=== PATIENT | female | born 1945 | race Caucasian/White ===

== ENCOUNTER → 2021-07-31 09:29 | Outpatient (CLI) | payer MEDICARE, SELFPAY | PROVIDERS: Visit Provider Family Medicine | DX: Z01.818 Encounter for other preprocedural examination (principal); Z11.52 Encounter for screening for COVID-19 | CPT/HCPCS: C9803; U0003; U0005 ==

== ENCOUNTER → 2023-01-25 09:26 | Outpatient (POV) | payer MEDICARE, SELFPAY | PROVIDERS: Visit Provider Dermatology | DX: Z00.00 Encounter for general adult medical examination without abnormal findings (principal) ==

== ENCOUNTER 2023-08-19 06:28 | Outpatient (CLI) | payer MEDICARE, SELFPAY ==
--- NOTE | 2023-08-19 06:31 | CT_ITS ---
FINAL REPORT TECHNIQUE: Thin section axial CT images of the facial bones and sinuses were obtained without contrast. Coronal and sagittal reformatted images were also obtained. This study was performed with techniques to keep radiation doses as low as reasonably achievable, (ALARA). Individualized dose reduction techniques using automated exposure control or adjustment of mA and/or kV according to the patient's size were employed. CLINICAL HISTORY: mucocele of the left maxillary sinus COMPARISON: None FINDINGS: There is significant enlargement of the left maxillary sinus, with erosion of the floor of the left maxillary sinus. The transverse diameter of the left maxillary sinus measures 4.1 cm. There is a neutral maxillary sinus tooth along the medial wall. The left maxillary ostium is not identified. There is opacification of several ethmoid air cells. No fluid levels are identified. The nasal septum is in the midline. No fracture or acute bony abnormality is identified. 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 IMPRESSION: Significant enlargement of the left maxillary sinus as described, consistent with a large mucocele. There is opacification of several left ethmoid air cells. A torus palatinus is present. Reviewed, Interpreted and Dictated by Alton Rocha III, MD Transcribed by Jacque Brito Authenticated and [facility]
== END 2023-08-19 23:59 ==
PROVIDERS: PCP Family Medicine; Visit Provider Nurse Practitioner
DX: J32.0 Chronic maxillary sinusitis (principal); J34.1 Cyst and mucocele of nose and nasal sinus
CPT/HCPCS: 70486

== ENCOUNTER 2023-10-10 08:30 | Outpatient (CLI) | payer MEDICARE, SELFPAY ==
[2023-10-10 08:36] LABS: MANUAL DIFFERENTIAL MANUAL DIFFERENTIAL (MANUAL DIFF)
[2023-10-10 08:47] LABS: Basophils # 0.1 K/mm3 (0-0.2); Eosinophils # 0.2 K/mm3 (0.0-0.4); Hematocrit 40.6 % (37.0-47.0); Hemoglobin 13.4 g/dL (12.2-16.2); Lymphocytes # 1.6 K/mm3 (0.7-4.5); Lymphocytes % 25.5 % (10-50); Mean Corpuscular HGB Conc 32.9 g/dL (31.8-35.4); Mean Corpuscular Hemoglobin 30.2 pg (27.0-31.2); Mean Corpuscular Volume 91.9 fl (81-99); Mean Platelet Volume 7.2 fl (7.4-10.4); Monocytes # 0.4 K/mm3 (0.1-1.0); Monocytes % 6.3 % (1.7-9.3); Neutrophils # 4.1 K/mm3 (1.8-7.8); Neutrophils % 64.1 % (37.0-80.0); Platelet Count 311 K/mm3 (142-424); Red Blood Count 4.42 M/mm3 (4.20-5.40); Red Cell Distribution Width 13.4 % (11.5-17.5); White Blood Count 6.3 K/mm3 (4.8-10.8)
[2023-10-10 09:16] LABS: Eosinophils % 2 % (0-3); Lymphocytes % 28 % (10-50); Monocytes % 4 % (2-9); Neutrophils % 66 % (42-76); Total Cells Counted 100
[2023-10-10 09:17] LABS: Platelet Estimate Normal; RBC Morphology Normal
[2023-10-10 09:23] LABS: Alanine Aminotransferase 24 U/L (12-78); Albumin Level 3.9 g/dl (3.5-5.0); Albumin/Globulin Ratio 1.7 (1.1-1.8); Alkaline Phosphatase 72 U/L (38-126); Anion Gap 8.9 mEq/L (5-15); Aspartate Amino Transferase 32 U/L (14-36); Bilirubin,Total 0.5 mg/dl (0.2-1.3); Blood Urea Nitrogen 18 mg/dl (7-17); Calcium 9.5 mg/dl (8.4-10.2); Carbon Dioxide 29 mmol/L (22.0-30.0); Chloride 106 mmol/L (98-107); Estimated Glomerular Filt Rate 97 ml/min (>60); GFR (African American) 117 ML/MIN (>60); Globulin 2.3 g/dL (1.3-3.2); Glucose 101 mg/dl (74-100); Potassium 3.9 mmoL/L (3.5-5.1); Sodium 140 mmol/L (136-145); Total Protein,Serum 6.2 g/dl (6.3-8.2)
== END 2023-10-10 23:59 ==
LOC: LAB 08:31
PROVIDERS: PCP Family Medicine; Visit Provider Nurse Practitioner
DX: J34.1 Cyst and mucocele of nose and nasal sinus (principal); J32.0 Chronic maxillary sinusitis
CPT/HCPCS: 36415; 80053; 85007; 85014; 85018; 85048; 85049

== ENCOUNTER 2023-10-12 11:47 | Day surgery (SDC) | payer MEDICARE, SELFPAY ==
[2023-10-07 10:34] VITALS: BMI 20.7
[2023-10-12] VITALS (10 sets, daily range): BP systolic 132–141; BP diastolic 69–105; PULSE 84–93; RESP 16–19; TEMP 36.3–43; O2SAT 97–98
--- NOTE | 2023-10-12 12:10 | ECG_ITS ---
APPROVED REPORT Exam: Resting ECG HR:85 bpm ECG Measurements Heart Rate 85 AXES NJ 183 P 54 QRSd 79 QRS 8 QT 361 T 37 QTc 403 Conclusion SINUS RHYTHM NORMAL ECG UNCONFIRMED REPORT Electronically signed by : Todd Joseph MD 10/13/2023 19:23:41
[2023-10-12] MEDS: LACTATED RINGERS 1000ML 1,000 ML 100 ML IV (12:29)
[2023-10-12] MEDS: CEFAZOLIN SODIUM 1 GM in 0.9 % SODIUM CHLORIDE 50 ML IV (12:37)
[2023-10-12] MEDS: OXYMETAZOLINE NASAL SPRAY 0.05% 15ML NS (13:04)
[2023-10-12] MEDS: LIDOCAINE 1% W/EPI 1:100,000 20ML VIAL 20 ML (13:05)
[2023-10-12] MEDS: BACITRACIN ZINC OINT 30GM TUBE 28 GM TP (13:06)
--- NOTE | 2023-10-12 13:58 | EXP.OP.NOTE ---
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 She also had a tooth on the medial wall of her maxillary sinus that was causing no significant problems Operative note:: The patient was brought to the operating room and after adequate general anesthesia the nose was prepped and draped in the usual sterile fashion and 1% lidocaine with epinephrine was used to locally infiltrate the left middle meatus and the nasal mucosa decongested with topical Afrin. Using a 0 degree sinus endoscope the left middle meatus was visualized visualized in the middle turbinate medialized. Uncinectomy was then performed with a pediatric backbiter and microdebrider clearing the nasofrontal tract and infundibulum. The natural ostium of the maxillary sinus was then enlarged and cleared of obstructing mucosal disease. The wall of the mucocele was then incised using a sickle knife and then microdebrider was employed to enlarge the maxillary sinus ostium. Then a large amount of mucopurulent material and what looked like fungal material was suctioned and irrigated from the mucocele. This was done with saline irrigation and suction. Irrigation and suction was performed until the anterior of the mucocele was completely cleared. Appropriate culture and specimens were sent. Anterior ethmoidectomy was performed with a microdebrider and clearing disease polypoid mucosa in the anterior ethmoid while sparing all mucosa posteriorly. Nova pack was placed in the left middle meatus and the procedure concluded. All counts correct and blood loss was minimal Condition: stable Disposition: PACU Complications:: No complications
--- NOTE | 2023-10-12 14:03 | EXP.ANES.CKL ---
[facility] Disclaimer: The information contained in this section may have been updated after the patient was seen, as this information can be updated by other users. Medical History Breast cancer Chronic maxillary sinusitis Hyperthyroidism Leukemia Lung cancer Mucocele of maxillary sinus Non-Hodgkin lymphoma Opacification of left maxillary sinus Surgical History H/O lumpectomy H/O: hysterectomy Family History Father Cancer Mother Hypertension Social History Smoking Status: Never smoker alcohol intake: never substance use type: denies use current occupational status: retired Travel in the last 8 weeks: None adopted: No caregiver/support person: No foster care: No household members: spouse housing: house lives independently: Yes marital status: [facility] Anesthesia Checklist Patient Identification Patient Identification: Arm Band Structural Data Admitted From: Home Planned Operative Procedure/s: Endoscopic Sinus Surgery Consent for Planned Operative Procedure(s) Verified: Yes Verified Documents: Surgical Consent and History and Physical NPO Status Verified Time NPO: 00:00 Additional verifications Anesthesia Reactions: No Hx Blood Transfusions: No Blood Transfusion Reaction: No Airway Assessment Mallampati Score:: Class II C-Spine Mobility Assessed: Yes TMJ Mobility Assessed: Yes Dentition: Good Dentition Neurological Assessment Level of Consciousness: Awake and Alert Anesthesia Plan Anesthesia Risk discussed: Yes Anesthesia Plan: Verified ASA Class: II Anesthesia Type: General
--- NOTE | 2023-10-12 14:05 | P.PNANES_ITS ---
[facility] Anesthesia Record Part I Anesthesia Record I Intake, IV Amount: 700 Hydration: Adequate Estimated blood loss (mL): 5 Urine output (mL): 0 Blood Products used (#): none Blood Pressure: 136/105 SaO2: 97 Pulse Rate: 89 Airway Patency: Patent Respiratory Rate: 16 Temperature: 97.3 F Patient is:: Drowsy and Stable Stable to PACU at:: 14:00
--- NOTE | 2023-10-13 11:11 | EXP.ANES.II ---
[facility] Anesthesia Record Part II Anesthesia Record Part II Discharge Time: 14:30 Destination: Surgical Day Care (OP Surgery) PACU nurse assessment reviewed?: Yes Patient Condition:: Good Anesthesia Complications:: None Swallowing reflex intact?: Yes Airway Patency: Patent Cyanosis?: No Blood Pressure: 140/84 SaO2: 97 Respiratory Rate: 19 Pulse Rate: 89 Temperature: 97.3 F Mental Status: Alert & Oriented Pain level:: 0 Nausea and/or vomitting:: None Intake, IV Amount: 0 Hydration: Adequate
[2023-10-13 11:12] VITALS: BP 140/84; PULSE 89; RESP 19; TEMP 36.3; O2SAT 97
== END 2023-10-12 14:57 | disposition home or self-care (01) ==
PROVIDERS: PCP Family Medicine; Visit Provider Otolaryngology
PROC: (CPT 31254; principal; 2023-10-12 13:15)
DX: J32.2 Chronic ethmoidal sinusitis (principal)
CPT/HCPCS: 31254; 31267; 31299; 87070; 87075; 87102; 87205; 87206; 88305; 88311; 93005; 96374; J3490; J2405

== ENCOUNTER 2025-04-07 12:16 | Outpatient (CLI) | payer MEDICARE, SELFPAY ==
--- OUTSIDE RECORDS SUMMARY | 2024-01-26 05:15 | XMS_ITS ---
Author Organization [facility]-[place] Address [address] [place] [id number] Care Team Providers Care Business Affairs Manager Name Role Phone Tomasa Berrios Primary Care Provider Allergies No Known Allergies Results Component Value Reference Range Notes CBC Venipuncture (in house) Reviewed date:01/30/2024 10:24:08 AM Interpretation: Performing Lab: Notes/Report: wbc 6.6 3.5 - 10 lymph 22.8 15 - 50 mid 5.8 2 - 15 gran 71.4 35 - 80 rbc 4.61 3.5 - 5.5 hgb 13.6 11.5 - 16.5 hct 40.7 35 - 55 mcv 88.3 75 - 100 mch 29.5 25 - 35 mchc 33.4 31 - 38 platlet 304 100 - 400 P-Comprehensive Metabolic Pa srinivas (CMP) Reviewed date:01/31/2024 10:40:50 PM Interpretation:gluc 102 Performing Lab: Notes/Report: Test performed by [email or web address] , [address], [place] [address] Sanford Jaimes MD, Automotive Generator Repairer CLIA: [id number] Sodium 143 135-145 mmol/L Potassium 4.2 3.5-5.3 mmol/L Chloride 106 97-108 mmol/L CO2 27 22-32 mmol/L Glucose 102 65-99 mg/dL BUN 14 8-23 mg/dL Creatinine 0.56 0.50-1.00 mg/dL Calcium 9.3 8.6-10.4 mg/dL eGFR by Creatinine 93 >59 mL/min/1.73m2 Protein 6.2 6.0-8.3 g/dL Albumin 4.2 3.5-5.3 g/dL Alkaline Phosphatase 83 35-121 IU/L ALT (SGPT) 14 <5-47 IU/L AST (SGOT) 20 <5-40 IU/L Bilirubin, Total 0.4 <0.2-1.2 mg/dL A/G Ratio 2.1 1.1-2.5 mg/dL P-Lipid Panel Reviewed date:01/31/2024 10:40:50 PM Interpretation:chol 216, non-hdl 137 Performing Lab: Notes/Report: Test performed by [facility], [address] , [facility], [place] [address] Sanford Jaimes MD, Automotive Generator Repairer CLIA: [id number] Cholesterol 216 <200 mg/dL Triglycerides 59 <150 mg/dL HDL Cholesterol 79 >39 mg/dL Cholesterol / HDL Ratio 2.73 0.00-4.44 Ratio Non-HDL Cholesterol 137 <130 mg/dL LDL Cholesterol (Calculation) 125 <130 mg/dL LDL Cholesterol Levels* Less than 100 mg/dL Optimal 100 to 129 mg/dL Near Optimal/ Above Optimal 130 to 159 mg/dL Borderline High 160 to 189 mg/dL High 190 mg/dL and above Very High * Categories as recommended by the 2004 ATPIII guidelines LDL/HDL Ratio 1.6 <3.3 Ratio LDL Cholesterol Patient History Test Date: 07/20/2022 LDL Results: 129 Units: mg/dL % Change: - Test Date: 01/26/2024 LDL Results: 125 Units: mg/dL % Change: -3% P-TSH Reviewed date:01/31/2024 10:40:50 PM Interpretation:0.36 Performing Lab: Notes/Report: Test performed by [email or web address] [address] [facility] , [facility], [place] [address] Sanford Jaimes MD, Automotive Generator Repairer CLIA: [id number] TSH 0.36 0.43-5.25 mU/L REASON FOR VISIT 6 months, Needs labs Medications Medication SIG (Take, Route, Frequency, Duration) Notes Start Date End Date Status Levothyroxine Sodium 100 MCG Take 1 tablet by mouth once daily; Duration: 90 days Active Ibuprofen PM 200-38 MG 1 cap(s) orally o nce daily Active Biotin 1 MG as directed Orally Active traMADol HCl 50 MG 1-2 tab(s) orally every 6 hours prn Not-Taking Clobetasol Propionate 0.05 % 1 pamela applied topically 2 times a day 06/13/2018 Active Olean-3 1000 MG 1/2 tab orally once daily Active Aspirin Adult Low Dose 81 MG 1 tab(s) orally once a day Active Multivitamin - 1 tab(s) orally once a day Active Calcium 600 + Minerals 600-200 MG-UNIT 1 tab(s) orally 3 times a day Active Euthyrox 100 MCG 1 tab(s) orally once a day Active Social History Tobacco Use: Social History Observation Description Date Details (start date - stop date) Never Smoker NA - NA CURRENT TOBACCO USE: Question Answer Notes Are you a: never smoker Vital Signs Weight 112.8 lbs 01/26/2024 Blood pressure systolic 140 mm Hg 01/26/20 24 Blood pressure diastolic 80 mm Hg 024 Heart Rate 70 /min 01/26/2024 Height 61 in 01/26/2024 BMI 21.31 kg/m2 01/26/2024 Encounters Encounter Location Date Provider Diagnosis [facility] [address] [facility] [address] [facility] [address] [place] [id number] 01/26/2024 Tomasa [place]asfleet Acquired hypothyroid ism E03.9 ; Osteopenia of spine M85.88 ; Hx of breast cancer Z85.3 ; CLL (chronic lymphocytic leukemia) C91.10 ; Primary osteoarthritis of right hip M16.11 ; Large B-cell lymphoma C85.10 ; Malignant neoplasm of right upper lobe of lung C34.11 ; Dyshidrotic eczema L30.1 and Dyslipidemia E78.5 Assessments Encounter Date Diagnosis (ICD Code) Assessment Notes Treatment Notes Treatment Clinical Notes Section Notes 01/26/2024 Acquired hypothyroidism (ICD-10 - E03.9) 01/26/2024 Osteopenia of spine (ICD-10 - M85.88) 01/26/2024 Hx of breast cancer (ICD-10 - Z85.3) 01/26/2024 CLL (chronic lymphocytic leukemia) (ICD-10 - C91.10) Continue follow-up with oncology 01/26/2024 Primary osteoarthritis of right hip (ICD-10 - M16.11) 01/26/2024 Large B-cell lymphoma (ICD-10 - C85.10) 01/26/2024 Malignant neoplasm of right upper lobe of lung (ICD-10 - C34.11) 01/26/2024 Dyshidrotic eczema (ICD-10 - L30.1) 01/26/2024 Dyslipidemia (ICD-10 - E78.5) Plan Of Treatment Medication Medication Name Sig Start Date Stop Date Notes Euthyrox 100 MCG 1 tab(s) orally once a day Treatment Notes Assessment Notes CLL (chronic lymphocytic leukemia) Pete nue follow-up with oncology Next Appt Details Follow Up: 6 Months, Reason: Provider Name:Tomasa Haro, 08/06/2025 09:30:00 AM, [address] [facility], [address], [place], [id number], Progress Notes * CINTHYA GUEVARA:1945 ( 80 yo F)Acc No.[id number]:01/26/2024 Progress Notes Patient: ALBA JOSEPH Provider: Tomasa Berrios M.D. :1945 A ge:78 Y S ex:Female Date:01/26/2024 Address:[address] [place], [place] [address], [id number] Subjective: * Chief Complaints: * 1 . 6 months. 2. Needs labs . * HPI: E ndocrinology: Maintenance P t presents today for a 6 month check up. Pt is fasting today. Pt sts that she is doing well and has no new concerns or complaints at this time.? E NT/respiratory: She recently underwent endoscopic sinus surgery per Dr. Clay with removal of a mucocele from the left maxillary sinus. She is breathing much better. H ematology: She continues to follow with her 2 oncologist with no new changes. They have been ordering her mammogram and bone density testing. * ROS: D ERMATOLOGY: no R estefany. n o H jhonny. G ASTROENTEROLOGY: no N ausea. n o V omiting. n o D iarrhea.? U ROLOGY: no D ifficulty urinating. n o B lood in urine. * Medical History: H ypothyroid, Breast Cancer - diagnosed 01/2017, Uterine Fibroids, CLL Dx in July 2016 - follows with oncology, Osteopenia, COLOGUARD - Negative - 01/2018, BMD - normal - 09/2018, Mammogram - normal - 09/2018, Has had Prevnar and Pneumovax in past, Mammograms ordered by oncologist, Large B cell lymphoma- diagnosed 10/2020, Primary lung cancer - diagnosed 08/2021 - S/P radiation therapy/ [facility], Bone density testing per oncology. * Surgical History: H ysterectomy Jul 2001, Partial Mastectomy/left breast January 2017, cataract surgery, both eyes , Colonoscopy ~2011, Sinus Surgery 10/12/2023. * Family History: F ather: 83 yrs, primary brain cancer. M other: 89 yrs, dementia, diagnosed with Hypertension. S iblings: diagnosed with Diabetes, Hypertension. 1 sister(s) . 1 son(s) . . pt has a sister at the age of 60, CHF, heavy smoker and drinker. * Social History: C URRENT TOBACCO USE: No A re you a: n ever smoker. C affeine: yes, Coffee and Soft Drinks 2 cups per day. Home smoke detector use: yes. Alcohol: beer, wine, mixed drinks, 4-5 per week. * Medications: T aking Biotin 1 MG Capsule as directed Orally , Taking Euthyrox 100 MCG Tablet 1 tab(s) orally once a day , Taking Clobetasol Propionate 0.05 % Cream 1 pamela applied topically 2 times a day , Taking Calcium 600 + Minerals 600-200 MG-UNIT Tablet 1 tab(s) orally 3 times a day , Taking Multivitamin - Tablet 1 tab(s) orally once a day , Taking Aspirin Adult Low Dose 81 MG Tablet Delayed Release 1 tab(s) orally once a day , Taking Olean-3 1000 MG Capsule 1/2 tab orally once daily , Taking Ibuprofen PM 200-38 MG Tablet 1 cap(s) orally once daily , Taking Levothyroxine Sodium 100 MCG Tablet Take 1 tablet by mouth once daily , Not-Taking traMADol HCl 50 MG Tablet 1-2 tab(s) orally every 6 hours prn , Medication List reviewed and reconciled with the patient * Allergies: N .K.D.A. Objective: * Vitals: W t:112.8, Temp:98.0, BP:140/80, HR:70, Nurse:KELTON, Ht: 61, BMI:21.31. * Examination: G eneral Examination: General Appearance: N AD, weight stable. H EENT: sclera and conjunctiva clear, PERRLA, TM's normal, translucent. Mild nasal congestion. Sinuses are nontender. N mlii: s upple, no lymphadenopathy, no carotid bruits, no thyromegaly. H eart: R SR. L ungs: c lear to auscultation. E xtremities: no leg edema. Assessment: * Assessment: 1. A cquired hypothyroidism - E03.9 (Primary) 2 . O steopenia of spine - M85.88 3 . H x of breast cancer - Z85.3 4 . C LL (chronic lymphocytic leukemia) - C91.10 5 . P rimary osteoarthritis of right hip - M16.11 6. L arge B-cell lymphoma - C85.10 7 . M alignant neoplasm of right upper lobe of lung - C34.11 8 . D yshidrotic eczema - L30.1 ?9. D yslipidemia - E78.5 Plan: * Treatment: Value Reference Range A /G Ratio 2.1 1.1-2.5 - mg/dL * A lbumin 4.2 3.5-5.3 - g/dL * A lkaline Phosphatase 83 35-121 - IU/L * A LT (SGPT) 14 <5-47 - IU/L * A ST (SGOT) 20 <5-40 - IU/L * B ilirubin, Total 0.4 <0.2-1.2 - mg/dL * B UN 14 8-23 - mg/dL * C alcium 9.3 8.6-10.4 - mg/dL * C hloride 106 97-108 - mmol/L * C O2 27 22-32 - mmol/L * C reatinine 0.56 0.50-1.00 - mg/dL * G lucose 102 H 65-99 - mg/dL * P otassium 4.2 3.5-5.3 - mmol/L * S odium 143 135-145 - mmol/L * P rotein 6.2 6.0-8.3 - g/dL * e GFR by Creatinine 93 >59 - mL/min/1.73m2 * Tomasa Berrios 01/31/2024 1 0:40:27 PM > labs reviewed are satisfactory ?LAB: P-TSH (Collection Date & Time - 01/26/2024 08:20 AM)?0.36* Value Reference Range T SH 0.36 L 0.43-5.25 - mU/L * Tomasa Berrios 01/31/2024 1 0:40:27 PM > labs reviewed are satisfactory 2.?CLL (chronic lymphocytic leukemia)? Notes: Continue follow-up with oncology??3.?Large B-cell lymphoma?LAB: P-Comprehensive Metabolic Panel (CMP) (Collection Date & Time - 01/26/2024 08:20 AM)?gluc 102* Value Reference Range A /G Ratio 2.1 1.1-2.5 - mg/dL * A lbumin 4.2 3.5-5.3 - g/dL * A lkaline Phosphatase 83 35-121 - IU/L * A LT (SGPT) 14 <5-47 - IU/L * A ST (SGOT) 20 <5-40 - IU/L * B ilirubin, Total 0.4 <0.2-1.2 - mg/dL * B UN 14 8-23 - mg/dL * C alcium 9.3 8.6-10.4 - mg/dL * C hloride 106 97-108 - mmol/L * C O2 27 22-32 - mmol/L * C reatinine 0.56 0.50-1.00 - mg/dL * G lucose 102 H 65-99 - mg/dL * P otassium 4.2 3.5-5.3 - mmol/L * S odium 143 135-145 - mmol/L * P rotein 6.2 6.0-8.3 - g/dL * e GFR by Creatinine 93 >59 - mL/min/1.73m2 * Tomasa Berrios 01/31/2024 1 0:40:27 PM > labs reviewed are satisfactory ?LAB: CBC Venipuncture (in house) (Collection Date & Time - 01/26/2024)* Value Reference Range w bc 6.6 3.5 - 10 * l ymph 22.8 15 - 50 * m id 5.8 2 - 15 * g ran 71.4 35 - 80 * r bc 4.61 3.5 - 5.5 * h gb 13.6 11.5 - 16.5 * h ct 40.7 35 - 55 * m cv 88.3 75 - 100 * m ch 29.5 25 - 35 * m chc 33.4 31 - 38 * p latlet 304 100 - 400 * Lelo Ku 01/26/2024 9:37 :32 AM > 4.?Dyslipidemia?LAB: P-Lipid Panel (Collection Date & Time - 01/26/2024 08:20 AM)?chol 216, non-hdl 137* Value Reference Range C holesterol / HDL Ratio 2.73 0.00-4.44 - Ratio * C holesterol 216 H <200 - mg/dL * H DL Cholesterol 79 >39 - mg/dL * L DL Cholesterol (Calculation) 125 <130 - mg/d L * L DL/HDL Ratio 1.6 <3.3 - Ratio * N on-HDL Cholesterol 137 H <130 - mg/dL * T riglycerides 59 <150 - mg/dL * Tomasa Berrios 01/31/2024 1 0:40:27 PM > labs reviewed are satisfactory * Procedure Codes: 8 5025 CBC WITH AUTO DIFF, 51839 VENIPUNCT, ROUTINE* * Follow Up: 6 Months * Images: Billing Information: * Visit Code: 69406 Office Visit, Est Pt., Level 3. * Procedure Codes: 20686 CBC WITH AUTO DIFF. 60217 VENIPUNCT, ROUTINE*. * Electronic signature of Tomasa Berrios MD on 04/08/2025 at 12:18 PM EDT Sign off status: Pending * Provider: Tomasa Berrios M.D. Date: 0 01/26/2024 Generated for Norahi negin/Abbie/eTransmitting on: 1 12:18 PM EDT History and Physical Notes * HPI (History of Present Illness) Category Sub-Category Detail Notes Category Not es [facility]. Pt is fasting today. Pt sts that she is doing well and has no new concerns or complaints at this time Examination Category Sub-Category Detail Notes Category Not es General Examination HEENT: sclera and c onjunctiva clear, PERRLA, TM's normal, translucent. Mild nasal congestion. Sinuses are nontender Heart: RSR Lungs: clear to auscultatio n Extremities: no leg edema General Appearance: NAD, weight stable Neck: supple, no lymphaden opathy, no carotid bruits, no thyromegaly
--- OUTSIDE RECORDS SUMMARY | 2024-07-26 04:45 | XMS_ITS ---
Author Organization [facility] Address [address] [place] [id number] Care Team Providers Care Research Program Assistant Name Role Phone Agustina Tomasa Mao Primary Care Provider [phone] Allergies No Known Allergies Results Component Value Reference Range Notes P-Comprehensive Metabolic Pa srinivas (CMP) Reviewed date:07/30/2024 10:39:37 AM Interpretation:K+ 5.4, gluc 101 Performing Lab: Notes/Report: CLIA: [id number] Sanford Jaimes MD, [employer] [address] [facility] , [address], [place] [address] Test performed by [facility], [facility] Sodium 144 135-145 mmol/L Potassium 5.4 3.5-5.3 mmol/L Chloride 107 97-108 mmol/L CO2 26 22-32 mmol/L Glucose 101 65-99 mg/dL BUN 15 8-23 mg/dL Creatinine 0.65 0.50-1.00 mg/dL Calcium 9.9 8.6-10.4 mg/dL eGFR by Creatinine 89 >59 mL/min/1.73m2 Protein 6.9 6.0-8.3 g/dL Albumin 4.5 3.5-5.3 g/dL Alkaline Phosphatase 76 35-121 IU/L ALT (SGPT) 16 <5-47 IU/L AST (SGOT) 23 <5-40 IU/L Bilirubin, Total 0.5 <0.2-1.2 mg/dL A/G Ratio 1.9 1.1-2.5 P-Lipid Panel Reviewed date:07/30/2024 10:39:37 AM Interpretation:chol 236, non-hdl 149, ldl 135 Performing Lab: Notes/Report: Test performed by [facility], [address], [place] [address] Sanford Jaimes MD, [employer] CLIA: [id number] Cholesterol 236 <200 mg/dL Triglycerides 68 <150 mg/dL HDL Cholesterol 87 >39 mg/dL Cholesterol / HDL Ratio 2.71 0.00-4.44 Ratio Non-HDL Cholesterol 149 <130 mg/dL LDL Cholesterol (Calculation) 135 <130 mg/dL LDL Cholesterol Levels* Less than [...] Results: 125 Units: mg/dL % Change: -3% Test Date: 07/26/2024 LDL Results: 135 Units: mg/dL % Change: +8% P-TSH Reviewed date:07/30/2024 10:39:37 AM Interpretation:Normal Performing Lab: Notes/Report: Test performed by [facility] [address] [place] [address] , [address], [place] [address] Sanford Jaimes MD, [employer] CLIA: [id number] TSH 1.45 0.43-5.25 mU/L REASON FOR VISIT 6 month check Medications Medication SIG (Take, Route, Frequency, Duration) Notes Start Date End Date Status Calcium 600 + Minerals 600-200 MG-UNIT 1 tab(s) orally 3 times a day Active Euthyrox 100 MCG 1 tab(s) orally once a day Active Multivitamin - 1 tab(s) orally once a day Active Aspirin Adult Low Dose 81 MG 1 tab(s) orally once a day Active Clobetasol Propionate 0.05 % 1 pamela applied topically 2 times a day 06/13/2018 Active Bellflower-3 1000 MG 1/2 tab orally once daily Active Ibuprofen PM 200-38 MG 1 cap(s) orally o nce daily Active Biotin 1 MG as directed Orally Active Social History Tobacco Use: Social History Observation Description Date Details (start date - stop date) Never Smoker NA - NA CURRENT TOBACCO USE: Question Answer Notes Are you a: never smoker Vital Signs Weight 111.6 lbs 07/26/2024 Blood pressure systolic 118 mm Hg 07/26/19 25 Blood pressure diastolic 68 mm Hg 025 Heart Rate 77 /min 07/26/2024 Height 61 in 07/26/2024 BMI 21.08 kg/m2 07/26/2024 Encounters Encounter Location Date Provider Diagnosis [facility] [address] 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, [address], [place], [id number], Progress Notes * ALBA GUEVARADOB:1945 ( 80 yo F)Acc No.[id number]:07/26/2024 Progress Notes Patient: ALBA JOESPH Provider: Tomasa Berrios M.D. :1945 A ge:79 Y S ex:Female Date:07/26/2024 Address:[address] [place] [address] HIRAM SMITH, [id number] Subjective: * Chief Complaints: * 1 . 6 month check. * HPI: H PI: 79 year old female presents with c/o Patient is here today for?Pt is here for her 6 month check up. Pt sts she is doing well and has no concerns or complaints at this time. Pt is fasting. H ematology: She continues to follow with her 2 oncologists with no changes. They have been ordering her mammogram [...] diagnosed with Hypertension. S iblings: diagnosed with Hypertension, Diabetes. 1 sister(s) . 1 son(s) . . [...] 4-5 per week. * Medications: T aking Euthyrox 100 MCG Tablet 1 tab(s) orally once a day , Taking Biotin 1 MG Capsule as directed Orally , Taking Clobetasol Propionate 0.05 % Cream 1 pamela applied topically 2 times a day , Taking Calcium 600 + Minerals 600-200 MG-UNIT Tablet 1 tab(s) orally 3 times a day , Taking Multivitamin - Tablet 1 tab(s) orally once a day , Taking Aspirin Adult Low Dose 81 MG Tablet Delayed Release 1 tab(s) orally once a day , Taking Bellflower-3 1000 MG Capsule 1/2 tab orally once daily , Taking Ibuprofen PM 200-38 MG Tablet 1 cap(s) orally once daily , Medication List reviewed and reconciled with the patient * Allergies: N .K.D.A. Objective: * Vitals: W t:111.6, Temp:98.3, BP:118/68, HR:77, Nurse:ALEXIS, Ht: 61, BMI:21.08. * Examination: G eneral Examination: General Appearance: N AD, weight stable. H EENT: sclera and conjunctiva clear, PERRLA, TM's normal, translucent. Mild nasal congestion. Sinuses are nontender. N mili: s upple, no lymphadenopathy, no carotid bruits, [...] E78.5 Plan: * Treatment: Value Reference Range T SH 1.45 0.43-5.25 - mU/L * Tomasa Berrios 07/30/2024 1 0:39:28 AM >See phone encounter 2.?CLL (chronic lymphocytic leukemia)?LAB: P-Comprehensive Metabolic Panel (CMP) (Collection Date & Time - 07/26/2024 09:02 AM)?K+ 5.4, gluc 101* Value Reference Range A /G Ratio 1.9 1.1-2.5 - * A lbumin 4.5 3.5-5.3 - g/dL * A lkaline Phosphatase 76 35-121 - IU/L * A LT (SGPT) 16 <5-47 - IU/L * A ST (SGOT) 23 <5-40 - IU/L * B ilirubin, Total 0.5 <0.2-1.2 - mg/dL * B UN 15 8-23 - mg/dL * C alcium 9.9 8.6-10.4 - mg/dL * C hloride 107 97-108 - mmol/L * C O2 26 22-32 - mmol/L * C reatinine 0.65 0.50-1.00 - mg/dL * G lucose 101 H 65-99 - mg/dL * P otassium 5.4 H 3.5-5.3 - mmol/L * S odium 144 135-145 - mmol/L * P rotein 6.9 6.0-8.3 - g/dL * e GFR by Creatinine 89 >59 - mL/min/1.73m2 * Tomasa Berrios 07/30/2024 1 0:39:28 AM >See phone encounter Notes: Continue follow-up with oncology??3.?Dyslipidemia?LAB: P-Comprehensive Metabolic Panel (CMP) (Collection Date & Time - 07/26/2024 09:02 AM)?K+ 5.4, gluc 101* Value Reference Range A /G Ratio 1.9 1.1-2.5 - * A lbumin 4.5 3.5-5.3 - g/dL * A lkaline Phosphatase 76 35-121 - IU/L * A LT (SGPT) 16 <5-47 - IU/L * A ST (SGOT) 23 <5-40 - IU/L * B ilirubin, Total 0.5 <0.2-1.2 - mg/dL * B UN 15 8-23 - mg/dL * C alcium 9.9 8.6-10.4 - mg/dL * C hloride 107 97-108 - mmol/L * C O2 26 22-32 - mmol/L * C reatinine 0.65 0.50-1.00 - mg/dL * G lucose 101 H 65-99 - mg/dL * P otassium 5.4 H 3.5-5.3 - mmol/L * S odium 144 135-145 - mmol/L * P rotein 6.9 6.0-8.3 - g/dL * e GFR by Creatinine 89 >59 - mL/min/1.73m2 * Tomasa Berrios 07/30/2024 1 0:39:28 AM >See phone encounter ?LAB: P-Lipid Panel (Collection Date & Time - 07/26/2024 09:02 AM)?chol 236, non-hdl 149, ldl 135* Value Reference Range C holesterol / HDL Ratio 2.71 0.00-4.44 - Ratio * C holesterol 236 H <200 - mg/dL * H DL Cholesterol 87 >39 - mg/dL * L DL Cholesterol (Calculation) 135 H <130 - mg/d L * L DL/HDL Ratio 1.6 <3.3 - Ratio * N on-HDL Cholesterol 149 H <130 - mg/dL * T riglycerides 68 <150 - mg/dL * Tomasa Berrios 07/30/2024 1 0:39:28 AM >See phone encounter * Procedure Codes: G 2211 Complex e/m visit add on * Follow Up: 6 Months * Images: Billing Information: * Visit Code: 38973 Office Visit, Est Pt., Level 3. * Procedure Codes: G2211 Complex e/m visit add on. * Electronic signature of Tomasa Berrios MD on 04/08/2025 at 12:19 PM EDT Sign off status: Pending * Provider: Tomasa Berrios M.D. Date: 0 07/26/2024 Generated for Gabino kam/Abbie/Dixon on: 1 12:19 PM EDT History and Physical Notes * HPI (History of Present Illness) Category Sub-Category Detail Notes Category Not es HPI Patient is here today for Pt is here for her 6 month check up. Pt sts she is doing well and has no concerns or complaints at this time. Pt is fasting Examination Category Sub-Category Detail Notes Category Not es General Examination HEENT: sclera and c onjunctiva clear, PERRLA, TM's normal, translucent. Mild nasal congestion. Sinuses are nontender Heart: RSR Lungs: clear to auscultatio n Extremities: no leg edema General Appearance: NAD, weight stable Neck: supple, no lymphaden opathy, no carotid bruits, no thyromegaly
--- OUTSIDE RECORDS SUMMARY | 2025-01-31 05:50 | XMS_ITS ---
Author Organization [facility] Address [address] [facility] [address] [place] [id number] Care Team Providers Care Power Marketer Name Role Phone Tomasa Berrios Primary Care Provider [phone] Allergies No Known Allergies Results Component Value Reference Range Notes CBC Venipuncture (in house) Reviewed date:02/03/2025 04:18:39 PM Interpretation:Normal Performing Lab: Notes/Report: Normal wbc 6.3 3.5 - 10 lymph 25.8 15 - 50 mid 5.9 2 - 15 gran 68.3 35 - 80 rbc 4.88 3.5 - 5.5 hgb 14.1 11.5 - 16.5 hct 42.8 35 - 55 mcv 87.6 75 - 100 mch 28.9 25 - 35 mchc 33.0 31 - 38 platlet 266 100 - 400 Cologuard Reviewed date:03/25/2025 06:54:00 PM Interpretation:negative Performing Lab: Notes/Report: negative P-Comprehensive Metabolic Pa srinivas (CMP) Reviewed date:02/03/2025 04:18:39 PM Interpretation:Normal Performing Lab: Notes/Report: CLIA: [id number] Sanford Jaimes MD, Hospital Insurance Clerk [address] [place] [address] , [address], [place] [address] Test performed by [facility], [facility] Sodium 143 135-145 mmol/L Potassium 4.2 3.5-5.3 mmol/L Chloride 105 97-108 mmol/L CO2 25 20-32 mmol/L Glucose 92 65-99 mg/dL BUN 18 8-23 mg/dL Creatinine 0.61 0.50-1.00 mg/dL Calcium 9.7 8.6-10.4 mg/dL eGFR by Creatinine 90 >59 mL/min/1.73m2 Protein 6.5 6.0-8.3 g/dL Albumin 4.5 3.5-5.3 g/dL Alkaline Phosphatase 69 35-121 IU/L ALT (SGPT) 17 <5-47 IU/L AST (SGOT) 23 <5-40 IU/L Bilirubin, Total 0.6 <0.2-1.2 mg/dL A/G Ratio 2.3 1.1-2.5 P-Lipid Panel Reviewed date:02/03/2025 04:18:39 PM Interpretation:chol 230, non-hdl 160, ldl 138 Performing Lab: Notes/Report: Test performed by [facility], [address] , [address], [place] [address] Sanford Jaimes MD, Hospital Insurance Clerk CLIA: [id number] Cholesterol 230 <200 mg/dL Triglycerides 110 <150 mg/dL HDL Cholesterol 70 >39 mg/dL Cholesterol / HDL Ratio 3.29 0.00-4.44 Ratio Non-HDL Cholesterol 160 <130 mg/dL LDL Cholesterol (Calculation) 138 <130 mg/dL LDL Cholesterol Levels* Less than 100 mg/dL Optimal 100 to 129 mg/dL Near Optimal/ Above Optimal 130 to 159 mg/dL Borderline High 160 to 189 mg/dL High 190 mg/dL and above Very High * Categories as recommended by the 2004 ATPIII guidelines LDL/HDL Ratio 2.0 <3.3 Ratio LDL Cholesterol Patient History Test Date: 01/26/2024 LDL Results: 125 Units: mg/dL % Change: -3% Test Date: 07/26/2024 LDL Results: 135 Units: mg/dL % Change: +8% Test Date: 01/31/2025 LDL Results: 138 Units: mg/dL % Change: +2% P-TSH Reviewed date:02/03/2025 04:18:39 PM Interpretation:0.21 Performing Lab: Notes/Report: Test performed by [facility] [address] [place] [address] , [facility], [place] [address] Sanford Jaimes MD, Hospital Insurance Clerk CLIA: [id number] TSH 0.21 0.43-5.25 mU/L REASON FOR VISIT 6 month check and Annual Wellness Visit Medications Medication SIG (Take, Route, Frequency, Duration) Notes Start Date End Date Status Ibuprofen PM 200-38 MG 1 cap(s) orally o nce daily Active Levothyroxine Sodium 100 MCG Take 1 tabl et by mouth once daily; Duration: 90 Active Aspirin Adult Low Dose 81 MG 1 tab(s) or ally once a day Active Dix-3 1000 MG 1/2 tab orally once daily Active Multivitamin - 1 tab(s) orally once a day Active Biotin 1 MG as directed Orally Active Clobetasol Propionate 0.05 % 1 pamela appli ed topically 2 times a day 06/13/2018 Active Euthyrox 100 MCG 1 tab(s) orally once a day Active Calcium 600 + Minerals 600-200 MG-UNIT 1 tab(s) orally 3 times a day Active Immunizations Vaccine Route Administration Date Status Comme nts PNEUMOVAX 23 VACCINE IM Intramuscular 01/31/2025 Administe red Social History Tobacco Use: Social History Observation Description Date Details (start date - stop date) Never Smoker NA - NA CURRENT TOBACCO USE: Question Answer Notes Are you a: never smoker Vital Signs Weight 106.8 lbs 01/31/2025 Blood pressure systolic 116 mm Hg 02/01/20 25 Blood pressure diastolic 60 mm Hg 025 Heart Rate 56 /min 01/31/2025 Height 61 in 01/31/2025 BMI 20.18 kg/m2 01/31/2025 Encounters Encounter Location Date Provider Diagnosis [facility] [address] [facility] [address] [place] [id number] 01/31/2025 Tomasa Berrios Adult general medica l examination Z00.00 ; Acquired hypothyroidism E03.9 ; Dyslipidemia E78.5 ; Osteopenia of spine M85.88 ; Hx of breast cancer Z85.3 ; CLL (chronic lymphocytic leukemia) C91.10 ; Primary osteoarthritis of right hip M16.11 ; Large B-cell lymphoma C85.10 ; Malignant neoplasm of right upper lobe of lung C34.11 ; Dyshidrotic eczema L30.1 and BMI 20.0-20.9, adult Z68.20 Assessments Encounter Date Diagnosis (ICD Code) Assessment Notes Treatment Notes Treatment Clinical Notes Section Notes 01/31/2025 Adult general medical examination (ICD-10 - Z00.00) Patient instructed to return to office Annually for Annual Wellness Visits to include annual screenings of Pain assessment, Functional Ability assessment, Cognitive Ability assessment, Fall Risk assessment, Depression screening and Bladder control screening. 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) 01/31/2025 Malignant neoplasm of right upper lobe of lung (ICD-10 - C34.11) 01/31/2025 Dyshidrotic eczema (ICD-10 - L30.1) 01/31/2025 BMI 20.0-20.9, adult (ICD-10 - Z68.20) Plan Of Treatment Medication Medication Name Sig Start Date Stop Date Notes Euthyrox 100 MCG 1 tab(s) orally once a day Treatment Notes Assessment Notes Adult general medical examination Patien t instructed to return to office Annually for Annual Wellness Visits to include annual screenings of Pain assessment, Functional Ability assessment, Cognitive Ability assessment, Fall Risk assessment, Depression screening and Bladder control screening. CLL (chronic lymphocytic leukemia) Pete nue follow-up with oncology Next Appt Details Follow Up: 6 Months, Reason: Provider Name:Tomasa Haro, 08/06/2025 09:30:00 AM, [address] [facility], [address], [place], [place], [phone], Progress Notes * PAOLA ALBADOB:1945 ( 80 yo F)Acc No.[id number]:01/31/2025 Annual Wellness Visit Patient: ALBA JOSEPH Provider: Tomasa Berrios M.D. :1945 A ge:79 Y S ex:Female Date:01/31/2025 Address:[address] [place], [place] [address]H[place]AM [place]HEMIDWAYNE [id number] Subjective: * Chief Complaints: * 1 . 6 month check and Annual Wellness Visit. * HPI: H PI: Patient is here today for a scheduled 6 month check up and?a Medicare Annual Wellness Visit. Pt sts she is doing well and has no concerns at this time. Pt sts she is fasting. * ROS: O PTHALMOLOGY: Negative for d enies vision issues. * Medical History: H ypothyroid, Breast Cancer [...] day , Taking Calcium 600 + Minerals 600- 200 MG-UNIT Tablet 1 tab(s) orally 3 times a day , Taking Multivitamin - Tablet 1 tab(s) orally once a day , Taking Aspirin Adult Low Dose 81 MG Tablet Delayed Release 1 tab(s) orally once a day , Taking Dix-3 1000 MG Capsule 1/2 tab orally once daily , Taking Ibuprofen PM 200-38 MG Tablet 1 cap(s) orally once daily , Taking Levothyroxine Sodium 100 MCG Tablet Take 1 tablet by mouth once daily * Allergies: N .K.D.A. Objective: * Vitals: W t: 106.8, Temp: 98.6, BP: 116/60, HR: 56, O2 Sat: 95% on RA, Nurse: anahi, Ht: 61, BMI:20.18. * Physical Examination: G ENERAL: Pain Assessment: P ain level: 0, on a scale of 0-10 (with 10 being extreme pain). F unctional Status Assessment: P atient response to question of how often physical health interferes with daily activities: Almost never. Able to perform ADLs-including meal preparation, grocery shopping, housework, laundry, taking medications or handling finances. Cognitive Status: alert and oriented. Ambulation Status: Fully ambulatory. F all Risk Assessment: I ndependant in ambulation, adequate lighting in home. Patient has NOT fallen or had trouble walking within the past 12 months. D epression Screening: D enies depressed mood or anxiety. Describes emotional health as: calm. B ladder Control Screening: s mall problems.? Assessment: * Assessment: 1. A dult general medical examination - Z00.00 (Primary) 2 . A cquired hypothyroidism - E03.9 3 . D yslipidemia - E78.5 4 . O steopenia of spine - M85.88 5 . H x of breast cancer - Z85.3 6 . C LL (chronic lymphocytic leukemia) - C91.10 7 . P rimary osteoarthritis of right hip - M16.11 8 . L arge B-cell lymphoma - C85.10 9 . M alignant neoplasm of right upper lobe of lung - C34.11 1 0. D yshidrotic eczema - L30.1 11. B WV 20.0-20.9, adult - Z68.20 Plan: * Treatment: Notes:Patient instructed to return to office Annually for Annual Wellness Visits to include annual screenings of Pain assessment, Functional Ability assessment, Cognitive Ability assessment, Fall Risk assessment, Depression screening and Bladder control screening.??2.?Acquired hypothyroidism? Continue Euthyrox Tablet, 100 MCG, 1 tab(s), orally, once a day.?LAB: P-TSH (Collection Date & Time - 01/31/2025 09:44 AM)?0.21* Value Reference Range T SH 0.21 L 0.43-5.25 - mU/L * Tomasa Berrios 02/03/2025 0 4:18:30 PM EDT > See phone encounter 3.?Dyslipidemia?LAB: P-Comprehensive Metabolic Panel (CMP) (Collection Date & Time - 01/31/2025 09:44 AM)?Normal* Value Reference Range A /G Ratio 2.3 1.1-2.5 - * A lbumin 4.5 3.5-5.3 - g/dL * A lkaline Phosphatase 69 35-121 - IU/L * A LT (SGPT) 17 <5-47 - IU/L * A ST (SGOT) 23 <5-40 - IU/L * B ilirubin, Total 0.6 <0.2-1.2 - mg/dL * B UN 18 8-23 - mg/dL * C alcium 9.7 8.6-10.4 - mg/dL * C hloride 105 97-108 - mmol/L * C O2 25 20-32 - mmol/L * C reatinine 0.61 0.50-1.00 - mg/dL * G lucose 92 65-99 - mg/dL * P otassium 4.2 3.5-5.3 - mmol/L * S odium 143 135-145 - mmol/L * P rotein 6.5 6.0-8.3 - g/dL * e GFR by Creatinine 90 >59 - mL/min/1.73m2 * Tomasa Berrios 02/03/2025 0 4:18:30 PM EDT > See phone encounter ?LAB: P-Lipid Panel (Collection Date & Time - 01/31/2025 09:44 AM)?chol 230, non-hdl 160, ldl 138* Value Reference Range C holesterol / HDL Ratio 3.29 0.00-4.44 - Ratio * C holesterol 230 H <200 - mg/dL * H DL Cholesterol 70 >39 - mg/dL * L DL Cholesterol (Calculation) 138 H <130 - mg/d L * L DL/HDL Ratio 2.0 <3.3 - Ratio * N on-HDL Cholesterol 160 H <130 - mg/dL * T riglycerides 110 <150 - mg/dL * Tomasa Berrios 02/03/2025 0 4:18:30 PM EDT > See phone encounter ?LAB: CBC Venipuncture (in house) (Collection Date & Time - 01/31/2025)? Normal* Value Reference Range w bc 6.3 3.5 - 10 * l ymph 25.8 15 - 50 * m id 5.9 2 - 15 * g ran 68.3 35 - 80 * r bc 4.88 3.5 - 5.5 * h gb 14.1 11.5 - 16.5 * h ct 42.8 35 - 55 * m cv 87.6 75 - 100 * m ch 28.9 25 - 35 * m chc 33.0 31 - 38 * p zackery 266 100 - 400 * Ramona Clark 01/31/2025 10:5 7:10 AM EDT > Tomasa Berrios 02/03/2025 04:18:30 PM EDT > See phone encounter 4.?CLL (chronic lymphocytic leukemia)? Notes: Continue follow-up with oncology?? * Immunizations: PNEUMOVAX 23 VACCINE (Route: Intramuscular) given by ANAHI Newman on Left Deltoid (Adult general medical examination) * Procedure Codes: G 0439 ANNUAL WELLNESS VST; PPS SUBSQT VST, G2211 Complex e/m visit add on, 1090F PRES/ABSN URINE INCON ASSESS, 3288F FALL RISK ASSESSMENT DOCD, 1170F FXNL STATUS ASSESSED, 1126F AMNT PAIN NOTED NONE PRSNT, 1159F MED LIST DOCD IN RCRD, 1003F LEVEL OF ACTIVITY ASSESS, 29604 CBC WITH AUTO DIFF, 1036F TOBACCO NON-USER, 4040F PNEUMOC IMM ORDER/ADMIN, G8783 BP SCR PRFRM RCMDD DEFIND SCR INTVL, G8752 MOST RECENT SYSTOLIC BP < 140MM HG, G8754 MOST RECENT DIASTOLIC BP < 90MM HG, G8510 NEG SCR Depression PT NOT ELIG F/U/PLN DOC, G8420 BMI<30 AND >=22 CALC & DOCU * Preventive Medicine: Counseling: E motional health: D iscussed ways to improve socialization. E xercise: P atient advised to start, increase or maintain level of exercise/physical activity. Injury prevention: F all prevention discussed. Discussed need for cane/walker. Potential trip hazards discussed. Immunizations: P neumococcal r ecommended. I nfluenza u p to date. Screening / Special Tests: M ammogram R ecent history: history breast cancer.?Colonoscopy R ecent history: Cologuard:07/28/2021 negative, recommended. B one mineral Density R ecent history: 09/13/2018, normal, recommended. * Follow Up: 6 Months * Images: Billing Information: * Visit Code: 03937 Office Visit, Est Pt., Level 3. Modifiers: 25 * Procedure Codes: G0439 ANNUAL WELLNESS VST; PPS SUBSQT VST. G2211 Complex e/m visit add on. 1090F PRES/ABSN URINE INCON ASSESS. 3288F FALL RISK ASSESSMENT DOCD. 1170F FXNL STATUS ASSESSED. 1126F AMNT PAIN NOTED NONE PRSNT. 1159F MED LIST DOCD IN RCRD. 1003F LEVEL OF ACTIVITY ASSESS. 64139 CBC WITH AUTO DIFF. 1036F TOBACCO NON-USER. 4040F PNEUMOC IMM ORDER/ADMIN. G8783 BP SCR PRFRM RCMDD DEFIND SCR INTVL. G8752 MOST RECENT SYSTOLIC BP < 140MM HG. G8754 MOST RECENT DIASTOLIC BP < 90MM HG. G8510 NEG SCR Depression PT NOT ELIG F/U/PLN DOC. G8420 BMI<30 AND >=22 CALC & DOCU. * Electronic signature of Tomasa Berrios MD on 04/08/2025 at 12:18 PM EDT Sign off status: Pending * Provider: Tomasa Berrios M.D. Date: 0 01/31/2025 Generated for Gabino kam/Abbie/Dixon on: 1 12:18 PM EDT History and Physical Notes * HPI (History of Present Illness) Category Sub-Category Detail Notes Category Not es HPI Patient is here today for a community health duled 6 month check up and a Medicare Annual Wellness Visit. Pt sts she is doing well and has no concerns at this time. Pt sts she is fasting Physical Examination Category Sub-Category Detail Notes Section Note s GENERAL Pain Assessment: Pain level: 0, on a scale of 0-10 (with 10 being extreme pain) Functional Status Assessment: Patient re sponse to question of how often physical health interferes with daily activities: Almost never. Able to perform ADLs-including meal preparation, grocery shopping, housework, laundry, taking medications or handling finances.Cognitive Status: alert and oriented.Ambulation Status: Fully ambulatory Fall Risk Assessment: Independant in amb ulation, adequate lighting in home. Patient has NOT fallen or had trouble walking within the past 12 months Depression Screening: Denies depressed m ood or anxiety. Describes emotional health as: calm Bladder Control Screening: small problem s
--- OUTSIDE RECORDS SUMMARY | 2025-04-01 09:09 | XMS_ITS | Encounter Summary ---
Author Organization [facility] Address [address] [place] [address] Care Team Providers Care Packaging Tech Name Role Phone Pan Berrios MD Primary Care Provider [phone] Agustin Michaud MD Unavailable [phone] Ronn Burrell MD Unavailable [phone] Reason for Referral * Imaging (Routine) - Closed Specialty Diagnoses / Procedures Referred By Rehan rodriguez Referred To Contact Radiology Diagnoses Non-small cell cancer of right lung (CMS/HCC) Procedures CT Chest wo IV Contrast Pat Maya APRN [address] [address] Phone: tel: fax: Referral ID Status Reason Start Date Expiration Date Visits Re quested Visits Authorized [id number] Closed 11/07/2024 05/09/2026 1 1 Reason for Visit * Imaging (Routine) - Closed Specialty Diagnoses / Procedures Referred By Rehan rodriguez Referred To Contact Radiology Diagnoses Non-small cell cancer of right lung (CMS/HCC) Procedures CT Chest wo IV Contrast Pat Maya APRN [address] [address] Phone: tel: fax: Referral ID Status Reason Start Date Expiration Date Visits Re quested Visits Authorized [id number] Closed 11/07/2024 05/09/2026 1 1 Encounter Details Date Type Department Care Team (Latest Contact Info) Description 04/01/2025 9:09 AM EDT - 04/01/2025 10:32 AM EDT Hospital Encounter [address] Radiology [address] [place] [address] Non-small cell cancer of right lung (CMS/HCC) Discharge Disposition: Home or Self Care Social History Tobacco Use Types Packs/Day Years Used Date Smoking Tobacco: Never Smokeless Tobacco: Never Alcohol Use Standard Drinks/Week Comments Yes 5 (1 standard drink = 0.6 oz pure alcohol) usually less than numbers above...no beer if I drink wine PHQ-2 Answer Date Recorded Patient Health Questionnaire-2 Score 0 04/01/2025 PHQ-9 Answer Date Recorded Patient Health Questionnaire-9 Score 0 04/01/2025 Comments No Sex and Gender Information Value Date Recorded Sex Assigned at Female 04/03/2021 3:05 PM EDT Legal Sex Female 12:33 PM EDT Gender Identity Female 04/03/2021 3:05 PM EDT Sexual Orientation Straight 04/03/2021 3: 05 PM EDT documented as of this encounter Functional Status * Over the past 2 weeks, how often have you been bothered by any of the following problems? Question Answer Date of Assessment Author Little interest or pleasure in doing things Not at all 04/01/2025 10:50 AM Autumn Hylton A Feeling down, depressed, or hopeless Not at all 04/01/2025 10:50 AM Autumn Hylton A Patient Health Questionnaire -2 Score 0 04/01/2025 10:50 AM Autumn Hylton A * Question Answer Date of Assessment Author Trouble falling or staying asleep, or sleeping too much Not at all 04/01/2025 10:50 AM Autumn Hylton A Feeling tired or having naveen le energy Not at all 04/01/2025 10:50 AM Autumn Hylton A Poor appetite or overeating Not at all 04/01/2025 10 :50 AM Autumn Hylton A Feeling bad about yourself - or that you are a failure or have let yourself or your family down Not at all 04/01/2025 10:50 AM Autumn Banerjee A Trouble concentrating on thi ngs, such as reading the newspaper or watching television Not at all 04/01/2025 10:50 AM Autumn Hylton Moving or speaking so slowly that other people could have noticed? Or the opposite - being so fidgety or restless that you have been moving around a lot more than usual. Not at all 04/01/2025 10:50 AM Autumn Hylton Thoughts that you would be better off or hurting yourself in some way Not at all 04/01/2025 10:50 AM Autumn Hylton Patient Health Questionnaire -9 Score 0 04/01/2025 10:50 AM Autumn Hylton * Calculated C-SSRS Risk Score (Lifetime/Recent) Answer Date of Assessment Author No Risk Indicated 04/01/2025 10:50 AM Autumn Hylton * How difficult have these problems made it for you to do your work, take care of things at home, or get along with other people? Answer Date of Assessment Author Not difficult at all 04/01/2025 10:50 AM Autumn Banerjee * Question Answer Date of Assessment Author 1. Wish to be (Past 1 Month) No 025 10:50 AM Autumn Hylton 2. Non-Specific Active Suici anu Thoughts (Past 1 Month) No 04/01/2025 10:50 AM Keith Hylton 6. Suicidal Behavior (Lifetime) No 10:50 AM Autumn Hylton documented as of this encounter Medications at Time of Discharge aspirin 81 MG chewable tablet Chew 1 tablet (81 mg) 1 (one) time each day. Pt swallowing instead of chewing. Biotin 10 MG tablet Take 1 tablet by mouth 1 (one) time each day. calcium citrate (Calcitrate) 950 (200 Ca) MG tablet Take 600 mg by mouth 1 (one) time each day. clobetasol (Temovate) 0.05 % cream APPLY CREAM TOPICALLY TWICE DAILY 07/20/2022 Euthyrox 100 MCG tablet Take 1 tablet (100 mcg) by mouth 1 (one) time each day. 02/23/2021 Multiple Vitamin (Multi-Vitamin Daily) tablet Take 1 tablet by mouth 1 (one) time each day. documented as of this encounter Plan of Treatment Upcoming Encounters Date Type Department Care Team (Late st Contact Info) Description 09/23/2025 11:00 AM EDT Appointment [facility] Radiation [id number] [place] [address] Agustin Michaud MD [address] [place] [id number] documented as of this encounter Procedures Procedure Name Priority Date/Time Associated Diagnosis Comments CT CHEST WO IV CONTRAST Routine 04/01/2025 9:48 AM EDT Non-small cell cancer of right lung (CMS/HCC) documented in this encounter Results * CT Chest wo IV Contrast (04/01/2025 9:48 AM EDT) Anatomical Region Laterality Modality Chest Computed Tomogra phy Impressions 04/01/2025 11:04 AM EDT Stable right upper lobe postradiation changes. No CT evidence of recurrent metastatic disease within the chest. CRITICAL RESULT: No. COMMUNICATION: Per this written report. By electronically signing this report, I, the attending physician, attest that I have personally reviewed the images/data for the above examination(s) and agree with the final edited report. 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 TECHNIQUE: Multiple CT helical images were obtained from thoracic inlet through upper abdomen without administration of IV contrast. The imaging protocol used in this examination was optimized to achieve diagnostic quality with the lowest possible radiation dose in accordance with the principles of ALARA (As Low As Reasonably Achievable). COMPARISON: 10/01/2024, 08/17/2023 and 10/27/2020 CT chest. FINDINGS: Mediastinum and heart: No mediastinal or hilar adenopathy. No pericardial effusion. The ascending thoracic aortic aneurysm measures 4 cm. Lungs/pleura: Trachea and main bronchi are patent. No bronchiectasis or bronchial wall thickening. Stable right upper lobe paramediastinal fibrosis. No new associated soft tissue nodularity or convex margins. Few unchanged bilateral sub-6 mm solid nodules. Reference left lower lobe (series 4/image 275). No pleural effusion or pneumothorax is seen. Upper Abdomen: No suspicious lesions in the partially visualized upper abdomen. Musculoskeletal: No suspicious lytic or sclerotic lesion. No acute bone abnormality identified. 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 TECHNIQUE: Multiple CT helical images were obtained from thoracic inlet through upperabdomen without administration of IV contrast. The imaging protocol usedin this examination was optimized to achieve diagnostic quality with thelowest possible radiation dose in accordance with the principles of ALARA(As Low As Reasonably Achievable). COMPARISON: 10/01/2024, 08/17/2023 and 10/27/2020 CT chest. FINDINGS: Mediastinum and heart: No mediastinal or hilar adenopathy. No pericardialeffusion. The ascending thoracic aortic aneurysm measures 4 cm. Lungs/pleura: Trachea and main bronchi are patent. No bronchiectasis orbronchial wall thickening. Stable right upper lobe paramediastinalfibrosis. No new associated soft tissue nodularity or convex margins. Fewunchanged bilateral sub-6 mm solid nodules. Reference left lower lobe(series 4/image 275). No pleural effusion or pneumothorax is seen. Upper Abdomen: No suspicious lesions in the partially visualized upperabdomen. Musculoskeletal: No suspicious lytic or sclerotic lesion. No acute boneabnormality identified. Unchanged bilateral axillary lymph nodes IMPRESSION: Stable right upper lobe postradiation changes. No CT evidence of recurrentmetastatic disease within the chest. CRITICAL RESULT: No. COMMUNICATION: Per this written report. By electronically signing this report, I, the attending physician, attestthat I have personally reviewed the images/data for the aboveexamination(s) and agree with the final edited report. Drafted by Franco Myers MD on 04/01/2025 9:59 AM Final report signed by Jeff Villegas MD on 04/01/2025 11:04 AM us Pat E Maries MEAT PRODUCTS DEMONSTRATOR IMG CT PROCEDURES Final Resu lt documented in this encounter Visit Diagnoses Diagnosis Non-small cell cancer of right lung (CMS/HCC) documented in this encounter Additional Health Concerns Assessment Noted Time PHQ-9 Depression Total Score: 0 04/01/20 25 10:50 AM EDT A fall risk assessment has been complete d for the patient 04/01/2025 10:50 AM EDT documented as of this encounter Care Teams Packaging Tech Relationship Specialty Start Date End Date Pan Berrios MD [address] [place] [address] PCP - General 03/20/21 Agutsin Michaud MD [address] [facility] [address] [place] [address] Radiation Oncologist Radiation Therapy 03/20/21 Ronn Burrell MD [address] [place] [address] Consulting Physician Pulmonary Disease 06/08/21 documented as of this encounter
--- OUTSIDE RECORDS SUMMARY | 2025-04-01 10:33 | XMS_ITS | Encounter Summary ---
Author Organization [facility] Address [address] [place] [address] Care Team Providers Care Taxi Driver Supervisor Name Role Phone Pan Berrios MD Primary Care Provider [phone] Agustin Michaud MD Unavailable [phone] Ronn Burrell MD Unavailable [phone] Reason for Referral * Imaging (Routine) - Pending Review Specialty Diagnoses / Procedures Referred By Rehan rodriguez Referred To Contact Radiology Diagnoses Non-small cell cancer of right lung (CMS/HCC) Procedures CT Chest wo IV Contrast Agustin Michaud MD [address] [address] Phone: tel: fax: Referral ID Status Reason Start Date Expiration Date V isits Requested Visits Authorized [id number] Pending Review 04/01/2025 10/01/2026 1 1 Reason for Visit * Reason Comments Follow-up Encounter Details Date Type Department Care Team (Latest Contact Info) Description 04/01/2025 10:33 AM EDT Hospital Encounter [facility] Radiation [address] [place] [phone] Agustin Michaud MD [address] [address] Non-small cell cancer of right lung (CMS/HCC) (Primary Dx) Social History Tobacco Use Types Packs/Day Years Used Date Smoking Tobacco: Never Smokeless Tobacco: Never Tobacco Cessation:Counseling Given: Not Answered Alcohol Use Standard Drinks/Week Comments Yes 5 [...] PM EDT documented as of this encounter Last Filed Vital Signs Vital Sign Reading Time Taken Comments Blood Pressure 133/82 04/01/2025 10:48 AM EDT Pulse 95 04/01/2025 10:48 AM EDT Temperature - - Respiratory Rate 18 04/01/2025 10:48 AM EDT Oxygen Saturation 99% 04/01/2025 10:48 AM EDT Inhaled Oxygen Concentration - - Weight 49.3 kg (108 lb 11 oz) 04/01/2025 10:48 A M EDT Height - - Body Mass Index 20.54 08/17/2023 10:50 AM EST documented in this encounter Functional Status * Over the [...] Autumn Hylton documented as of this encounter Miscellaneous Notes * Progress Notes - Agustin Michaud MD - 04/01/2025 11:00 AM EDT [facility] RADIATION MEDICINE RADIATION ONCOLOGY FOLLOW-UP NOTE PATIENT NAME: Kristine Sam : 1945 DATE OF SERVICE: 04/01/2025 DIAGNOSIS AND Cancer Staging DLBCL (diffuse large B cell lymphoma) Staging form: Hodgkin and Non-Hodgkin Lymphoma, AJCC 8th Edition - Clinical stage from 12/27/2020: Stage I (Diffuse large B-cell lymphoma) - Unsigned Non-small cell lung cancer (CMS/HCC) Staging form: Lung, AJCC 8th Edition - Clinical: Stage IA2 (cT1b, cN0, cM0) - Unsigned PRIOR RADIATION THERAPY: SBRT at 5000 cGy in 5 fractions to a RUL nodule; completed 10/21/2021 3240 cGy in 18 fractions at 180 cGy per fraction to the left neck and thyroid completed 05/01/21 HDR radiation to the left breast at [facility] in [place]. KARNOFSKY PERFORMANCE STATUS: 100 - Normal; no complaints; no evidence of disease. HISTORY OF PRESENT ILLNESS: Kristine Sam is a 77 y.o. female with a PMH Hx of CLL (never requiring treatment), breast cancer s/p lumpectomy, HDR radiation and tamoxifen, DLBCL s/p CHOP x1, received R-CHOP x5 followed by ISRT to the left neck and thyroid completed 05/01/21. Then in 2021 new right pulmonary noted which was treated with SBRT as detailed above. INTERVAL HISTORY: Ms. Sam presents to clinic with no new complaints. She is a never smoker. She states that she feels really good and continues to walk on treadmill daily for 2 miles. MEDICATIONS: Reviewed ALLERGIES: No Known Allergies SOCIAL HISTORY: Social History[1] The patient has been counseled on tobacco cessation: No PHYSICAL EXAM: Visit Vitals OB Status Postmenopausal Smoking Status Never Visit Vitals BP 133/82 Pulse 95 Wt 49.3 kg (108 lb 11 oz) SpO2 99% BMI 20.54 kg/m?? Patient appears comfortable, seated in NAD Vitals reviewed. Oriented X3 CN's II-XII appear grossly normal No obvious adenopathy in neck No back pain or other palpable pain No crackles, wheezes or respiratory distress No peripheral edema Strength/sensation of extremities appears normal, ambulates normally IMAGING: CT chest done today 04/01/2025 was reviewed by myself and final report is pending. No obvious changes or recurrence noted ASSESSMENT AND PLAN: Kristine Sam is a 80 y.o. female who completed SBRT 10/2021. She continues to do well. F/U [address] Approximately 30 minutes was spent reviewing current and historical imaging, pathology, records andain direct discussion with the patient. Agustin Michaud M.D., Ph.D. [1] Social History Tobacco Use Smoking status: Never Smokeless tobacco: Never Vaping Use Vaping status: Never Used Substance Use Topics Alcohol use: Yes Alcohol/week: 5.0 standard drinks of alcohol Types: 3 Glasses of wine, 2 Cans of beer per week Comment: usually less than numbers above...no beer if I drink wine Drug use: Never documented in this encounter Plan of Treatment Upcoming Encounters Date Type Department Care Team (Late st Contact Info) Description 09/23/2025 11:00 AM EDT Appointment [facility] Radiation [address] [place] [address] Agustin Michuad MD [id number] [place] [address] Scheduled Orders Name Type Priority Associated Diagnoses Orde r Schedule CT Chest wo IV Contrast Imaging Routine Non-small cell cancer of right lung (CMS/HCC) Expected: 09/29/2025 (Approximate), Expires: 10/03/2026 documented as of this encounter Visit Diagnoses Diagnosis Non-small cell cancer of right lung (CMS/HCC)- Primary documented in this encounter Additional Health Concerns Assessment Noted Time PHQ-9 Depression Total Score: 0 04/01/20 25 10:50 AM EDT A fall risk assessment has been complete d for the patient 04/01/2025 10:50 AM EDT documented as of this encounter Care Teams Taxi Driver Supervisor Relationship Specialty Start Date End Date Pan Berrios MD [address] [place] [address] PCP - General 03/20/21 Agustin Michaud MD [address] [facility] [address] [place] [address] Radiation Oncologist Radiation Therapy 03/20/21 Ronn Burrell MD [address] [place] [address] Consulting Physician Pulmonary Disease 06/08/21 documented as of this encounter
[2025-04-07 21:48] LABS: Influenza A, PCR Not Detected (NotDetected); Influenza B, PCR Not Detected (NotDetected)
[2025-04-07 22:40] LABS: Coronavirus 19, PCR Detected (NotDetected)
--- OUTSIDE RECORDS SUMMARY | 2025-04-08 12:19 | XMS_ITS | Encounter Summary ---
Author Organization Healthcare Address [address] [place] [address] Care Team Providers Care Irrigation Specialist Name Role Phone Pan Berrios MD Primary Care Provider [phone] Agustin Michaud MD Unavailable [phone] Ronn Burrell MD Unavailable [phone] Encounter Details Date Type Department Care Team (Late Contact Info) Description 12/10/2021 Orders Only External Location [address] [place] [phone] Provider, External Social History Tobacco Use Types Packs/Day Years Used Date Smoking Tobacco: Never Smokeless Tobacco: Never Alcohol Use Standard Drinks/Week Comments Yes 0 (1 standard drink = 0.6 oz pur e alcohol) social. PHQ-2 Answer Date Recorded Patient Health Questionnaire-2 Score 0 06/08/2021 Comments No Sex and Gender Information Value Date Recorded Sex Assigned at Female 04/03/2021 3:05 PM EDT Legal Sex Female 12:33 PM EDT Gender Identity Female 04/03/2021 3:05 PM EDT Sexual Orientation Straight 04/03/2021 3 :05 PM EDT COVID-19 Exposure Response Date Recorded In the last 10 days, have yo u been in contact with someone who was confirmed or suspected to have Coronavirus/COVID-19? No / Unsure 11/18/2021 11:13 AM EDT documented as of this encounter Plan of Treatment Upcoming Encounters Date Type Department Care Team (Late st Contact Info) Description 09/23/2025 11:00 AM EDT Appointment [facility] Radiation [address] [facility] [id number] [place] [address] Agustin Michaud MD [address] [facility] [address] [place] [address] documented as of this encounter Procedures Procedure Name Priority Date/Time Associated Diagnosis Comments CT SOFT TISSUE NECK W IV CONTRAST 12/10/2021 9:45 AM EDT documented in this encounter Results * CT Soft Tissue Neck w IV Contrast (12/10/2021 9:45 AM EDT) Anatomical Region Laterality Modality Neck Computed Tomogra phy 12/10/2021 9:45 AM EDT us External Provider IMG CT PROCEDURES Final Result documented in this encounter Visit Diagnoses Not on filedocumented in this encounter Additional Health Concerns Assessment Noted Time A fall risk assessment has been complete d for the patient 11/18/2021 11:21 AM EDT documented as of this encounter Care Teams Irrigation Specialist Relationship Specialty Start Date End Date Pan Berrios MD [address] [place] [address] PCP - General 03/20/21 Agustin Michaud MD [address] [phone] Radiation Oncologist Radiation Therapy 03/20/21 Ronn Burrell MD [address] [place] [address] Consulting Physician Pulmonary Disease 06/08/21 documented as of this encounter
--- OUTSIDE RECORDS SUMMARY | 2025-04-08 12:19 | XMS_ITS | Clinical Summary ---
Author Organization [facility] Address [address] [place] [address] Care Team Providers Care Regional Construction Manager Name Role Phone Pan Berrios MD Primary Care Provider Social History Tobacco Use Types Packs/Day Years Used Date Smoking Tobacco: Never Assessed Abuse Screen Answer Date Recorded Unsafe at Home or Work/School Not on file Feels Threatened by Someone? Not on file Does Anyone Keep You from Co ntacting Others or Doint Things Outside the Home? Not on file 04/15/2023 Physical Sign of Abuse Present Not on file 1 Housing Stability Answer Date Recorded Current Living Arrangements Not on file 04/03 Potentially Unsafe Housing Conditions Not on caitie e 04/15/2023 Family and Community Support Answer Jared e Recorded Help with Day-to-Day Activities Not on file 04/15/2023 Lonely or Isolated Not on file 04/15/2023 Employment Answer Date Recorded Do you want help finding or keeping work or a ciarra b? Not on file 04/15/2023 Disabilities Answer Date Recorded Concentrating, Remembering, or Making Decisions Difficulty Not on file 04/15/2023 Doing Errands Independently Difficulty Not on fi le 04/15/2023 Education Answer Date Recorded Help with school or training? Not on file Preferred Language Not on file 04/15/2023 Comments Unknown Sex and Gender Information Value Date Recorded Sex Assigned at Not on file Legal Sex Female 10:00 AM EDT Gender Identity Not on file Sexual Orientation Not on file Plan of Treatment Health Maintenance Due Date Last Done Comments ANNUAL PHYSICAL 1945 DXA SCAN 1945 TDAP/TD VACCINES (1 - Tdap) 02/29/1964 Pneumococcal Vaccine 50+ (1 of 1 - PCV) 1995 ZOSTER VACCINE (1 of 2) 1995 RSV Vaccine - Adults (1 - 1- dose 75+ series) 02/29/2020 INFLUENZA VACCINE 02/01/2025 04/14/2020, 06/14/2017 COVID-19 Vaccine (2024- season) 2025, 07/30/2020 Insurance MEDICARE A & B Member Subscriber Plan / Payer (Ef fective 2010-Present) Name:Kristine Sam Member ID:[id number] Relation to Subscriber:Self Name:Kristine Sam Subscriber ID:[id number] Payer ID:[id number] Group ID:Not on file Type:Not on file Address: [address] [employer] Care Teams Regional Construction Manager Relationship Specialty Start Date End Date Pan Berrios MD [address] [facility] [address] [place] [address] PCP - General Family Medicine 02/23/21
--- OUTSIDE RECORDS SUMMARY | 2025-04-08 12:19 | XMS_ITS | Clinical Summary ---
Author Organization Healthcare Address [address] [place] [address] Care Team Providers Care Repairer General Name Role Phone Pan Berrios MD Primary Care Provider [phone] Agustin Michaud MD Unavailable [phone] Ronn Burrell MD Unavailable Allergies No known active allergies Medications Euthyrox 100 MCG tablet Take 1 tablet (100 mcg) by mouth 1 (one) time each day. 1 Active calcium citrate (Calcitrate) 950 (200 Ca) MG tablet Take 600 mg by mouth 1 (one) time each day. Active Multiple Vitamin (Multi-Vitamin Daily) tablet Take 1 tablet by mouth 1 (one) time each day. Active aspirin 81 MG chewable tablet Chew 1 tablet (81 mg) 1 (one) time each day. Pt swallowing instead of chewing. Active Biotin 10 MG tablet Take 1 tablet by mouth 1 (one) time each day. 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 [place] [phone] Agustin Michaud MD Non-small cell cancer of right lung (CMS/HCC) (Primary Dx) 04/01/2025 9:09 AM EDT - 04/01/2025 10:32 AM EDT Hospital Encounter [facility] [address] [place] [phone] Non-small cell cancer of right lung (CMS/HCC) Discharge Disposition: Home or Self Care 04/01/2025 Travel 03/26/2025 Travel from Last 3 Months Family History Medical History Relation Name Comments Cancer Father Santino Padilla Anesthesia problems Neg Hx Malig Hyperthermia Neg Hx Relation Name Status Comments Father Santino Padilla Social History Tobacco Use Types Packs/Day Years [...] Orientation Straight 04/03/2021 3: 05 PM EDT Last Filed Vital Signs Vital Sign Reading Time Taken Comments Blood Pressure 133/82 04/01/2025 10:48 AM EDT Pulse 95 04/01/2025 10:48 AM EDT Temperature 36.7 C (98 F) 02/13/2024 10:55 AM EDT Respiratory Rate 18 04/01/2025 10:48 AM EDT Oxygen Saturation 99% 04/01/2025 10:48 AM EDT Inhaled Oxygen Concentration - - Weight 49.3 kg (108 lb 11 oz) 04/01/2025 10:48 A M EDT Height 154.9 cm (5' 1 ) 08/17/2023 10:50 AM EST Body Mass Index 20.54 08/17/2023 10:50 AM EST Plan of Treatment Upcoming Encounters Date Type Department Care Team (Late st Contact Info) Description 09/23/2025 11:00 AM EDT Appointment [facility] [id number] [place] [address] Agustin Michaud MD [address] [place] [phone] Health Maintenance Due Date Last Done Comments [facility]-Medicare Annual Wellness (AWV) 1945 [facility]-Infant/Child/Adol SDOH Screenings 1945 [facility]- SDOH Screenings 1963 [facility]-Adult SDOH Screenings 1963 [facility]-DTaP,Tdap,and Td Vaccines (1 - Tdap) 02/29/1964 [facility]-Hepatitis A Vaccines (1 of 2 - Risk 2-dose series) 02/29/1964 [facility]-RSV Vaccine: 60+ Years or (1 - 1-dose 75+ series) 02/29/2020 [id number] Vaccine (4 - 2024- season) 2025 03/18/2021, 08/27/2020, 07/30/2020 [facility]-Influenza Vaccine (#1) 03/04/202504/24, 04/16/2022, 05/07/2021, Additional history exists [facility]-Bone Density Scan 01/09/2026 01/10/2024 [facility]-Pneumococcal Vaccine: 50+ Years (2 of 2 - PCV) 01/31/2026 01/31/2025 [facility]-Depression Screening 04/01/2026 04/01/2025, 03/05 [facility]-Zoster Vaccines Completed 12/15/2021, HPV Vaccines Aged Out No longer eligi ble based on patient's age to complete this topic [facility]-HIB Vaccines Aged Out No longer e ligible based on patient's age to complete this topic [facility]-IPV Vaccines Aged Out No longer e ligible based on patient's age to complete this topic [facility]-Rotavirus Vaccines Aged Out No lo nger eligible based on patient's age to complete this topic Procedures Procedure Name Priority Date/Time Associated Diagnosis Comments CT CHEST WO IV CONTRAST Routine 04/01/2025 9:48 AM EDT Non-small cell cancer of right lung (CMS/HCC) from Last 3 Months Results * CT Chest wo IV Contrast [...] Jeff Villegas MD on 04/01/2025 11:04 AM Pat Maya [employer] IMG CT PROCEDURES Final Resu lt from Last 3 Months Insurance AAR MEDICARE Care Teams Repairer General Relationship Specialty Start Date End Date Pan Berrios MD [address] [place] [address] PCP - General 03/20/21 Agustin Michaud MD [address] [place] [phone] Radiation Oncologist Radiation Therapy 03/20/21 Ronn Burrell MD [address] [place] [phone] Consulting Physician Pulmonary Disease 06/08/21
--- OUTSIDE RECORDS SUMMARY | 2025-04-08 12:19 | XMS_ITS | Encounter Summary ---
Author Organization Healthcare Address [address] [place] [address] Care Team Providers Care Crew Mess Attendant Name Role Phone Pan Berrios MD Primary Care Provider [phone] Agustin Michaud MD Unavailable [phone] Ronn Burrell MD Unavailable [phone] Encounter Details Date Type Department Care Team (Late st Contact Info) Description 06/05/2021 Lab Requisition [facility] [address] [place] [address] Ronn Burrell MD [address] [place] [address] Diffuse large B-cell lymphoma, unspecified site (CMS/HCC) Social History Tobacco Use Types Packs/Day Years Used Date Smoking Tobacco: Never Smokeless Tobacco: Never Alcohol Use Standard Drinks/Week Comments Not Currently 0 (1 standard drink = 0.6 oz pur e alcohol) PHQ-2 Answer Date Recorded Patient Health Questionnaire-2 Score 0 06/08/2021 Comments Unknown Sex and Gender Information Value Date Recorded Sex Assigned at Female 04/03/2021 3:05 PM EDT Legal Sex Female 12:33 PM EDT Gender Identity Female 04/03/2021 3:05 PM EDT Sexual Orientation Straight 04/03/2021 3: 05 PM EDT COVID-19 Exposure Response Date Recorded In the last month, have you been in contact with someone who was confirmed or suspected to have Coronavirus / COVID-19? No / Unsure 06/08/2021 10:24 AM EST documented as of this encounter Functional Status * Over the past 2 weeks, how often have you been bothered by any of the following problems? Question Answer Date of Assessment Author Little interest or pleasure in doing things Not at all 06/08/2021 10:35 AM Mckayla Aceves Feeling down, depressed, or hopeless Not at all 06/08/2021 10:35 AM Mckayla Aceves Patient Health Questionnaire -2 Score 0 06/08/2021 10:35 AM Mckayla Aceves * Calculated C-SSRS Risk Score (Lifetime/Recent) Answer Date of Assessment Author No Risk Indicated 06/08/2021 10:34 AM Mckayla Aceves * Question Answer Date of Assessment Author 1. Wish to be (Past 1 Month) No 021 10:34 AM Mckayla Aceves 2. Non-Specific Active Suici anu Thoughts (Past 1 Month) No 06/08/2021 10:34 AM Tomás Aceves 6. Suicidal Behavior (Lifetime) No 10:34 AM Mckayla Aceves documented as of this encounter Plan of Treatment Upcoming Encounters Date Type Department Care Team (Late st Contact Info) Description 09/23/2025 11:00 AM EDT Appointment [facility] [id number] [place] [address] Agustin Michaud MD [address] [place] [address] documented as of this encounter Procedures Procedure Name Priority Date/Time Associated Diagnosis Comments CYTOLOGY CONSULT Routine 06/05/2021 9:28 AM EST Diffuse large B-cell lymphoma, unspecified site (CMS/HCC) documented in this encounter Results * Cytology Consult (06/05/2021 9:28 AM EST) Case Report Cytology Case: [id number] Authorizing Provider: Ronn Burrell MD Collected: 06/05/2021927 Ordering Location: [facility] Lab Received: 06/05/2021927 Pathologist: Rogelio Bolton MD Specimen: Thyroid, [id number] 06/06/2021 12:23 PM EST [facility] Final Diagnosis THYROID, LEFT, FINE-NEEDLE ASPIRATION (OUTSIDE ; COLLECTED 10/23/20) - MATURE B-CELL LYMPHOMA, SEE COMMENT. 06/06/2021 12:23 PM EST [facility] at 1223 EST Comment Examination of the cell block demonstrates lymphoid populations with variation in size ranging from small to intermediate. There are scattered large cells as well, but sheets or clusters of large cells are not identified. Focal areas of necrosis are noted. The provided immunohistochemical stains have been reviewed. The majority of lymphocytes are composed of B-cells as highlighted by staining for CD20. B-lymphocytes coexpress CD5, CD23 and BCL2. A subset of B-cells are positive for CD10, BCL6 and MUM1. Staining for cyclin D1 is negative. C-MYC highlights some of the cells and focally reaches up to 40%. CD3 stains many background T lymphocytes. LEF1 shows focal positivity in some cells, but it is unascertained if these cells represent B lymphocyte or T cells. Ki-67 demonstrates a proliferation index of 30-40%. The overall findings are consistent with involvement of thyroid by a mature B-cell lymphoma. Patient's history of chronic lymphocytic leukemia/small lymphocytic lymphoma (CLL/SLL) is noted. The presence of scattered larger cells and the high proliferation index are worrisome for progression of small lymphocytic lymphoma to a higher grade lesion, but this possibility cannot further investigated based on this cell block material. 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 06/06/2021 12:23 PM EST [facility] Clinical Information C83.30 - Localized swelling, muscle lump, neck 06/06/2021 12:23 PM EST [facility] Gross Description A. [id number] 06/06/2021 12:23 PM EST [facility] Note: A resident was involved in the service. I attest I examined the relevant preparations for the specimens and confirmed the diagnosis or interpretation. 06/06/2021 12:23 PM EST [facility] Fine Needle Aspirate Thyroid structure / Unknown 06/05/2021 9:28 AM EST 06/05/2021 9:28 AM EST us Ronn Burrell MD LAB PATHOLOGY ORDERABLES Debbie carlos [facility] [address] [place] [address] documented in this encounter Visit Diagnoses Diagnosis Diffuse large B-cell lymphoma, unspecified site documented in this encounter Additional Health Concerns Assessment Noted Time A fall risk assessment has been complete d for the patient 04/27/2021 9:40 AM EDT documented as of this encounter Care Teams Crew Mess Attendant Relationship Specialty Start Date End Date Pan Berrios MD [address] [place] [address] PCP - General 03/20/21 Agustin Michaud MD [address] [place] [address] Radiation Oncologist Radiation Therapy 03/20/21 Ronn Burrell MD [address] [place] [phone] Consulting Physician Pulmonary Disease 06/08/21 documented as of this encounter
--- OUTSIDE RECORDS SUMMARY | 2025-04-08 12:19 | XMS_ITS | Encounter Summary ---
Author Organization Healthcare Address [address] [place] [address] Care Team Providers Care Distillery Worker General Name Role Phone Pan Berrios MD Primary Care Provider + [phone] Agustin Michaud MD Unavailable [phone] Ronn Burrell MD Unavailable [phone] Encounter Details Date Type Department Care Team (Latest Contact Info) Description 03/26/2025 Travel Social History Tobacco Use Types Packs/Day Years [...] PM EDT documented as of this encounter Plan of Treatment Upcoming Encounters Date Type Department Care Team (Late st Contact Info) Description 09/23/2025 11:00 AM EDT Appointment [facility] [id number] [place] [address] Agustin Michaud MD [address] [place] [address] documented as of this encounter Visit Diagnoses Not on filedocumented in this encounter Additional Health Concerns Assessment Noted Time A fall risk assessment has been complete d for the patient 10/01/2024 10:23 AM EDT documented as of this encounter Care Teams Distillery Worker General Relationship Specialty Start Date End Date Pan Berrios MD [address] [place] [address] PCP - General 03/20/21 Agustin Michaud MD [address] [facility] [address] [place] [address] Radiation Oncologist Radiation Therapy 03/20/21 Ronn Burrell MD [address] [place] [address] Consulting Physician Pulmonary Disease 06/08/21 documented as of this encounter
--- OUTSIDE RECORDS SUMMARY | 2025-04-08 12:19 | XMS_ITS ---
Author Organization Healthcare Address [address] [place] [address] Care Team Providers Care Mountain Services Manager Name Role Phone Pan Berrios MD Primary Care Provider [phone] Agustin Michaud MD Unavailable [phone] Ronn Burrell MD Unavailable [phone] Active Problems Problem Noted Date Diagnosed Date [...] 12/27/2020:Stage I(Diffuse large B-cell lymphoma) - Unsigned Current Treatment and Therapy Plans No current plan information found. Past Treatment and Therapy Plans No past plan information found. Current Radiation Episodes * SBRT: Right Lung - Upper lobeOverview* First Treatment Date Latest Treatment Date Treatment Site Technique Goal Episode Provider 10/08/2021 10/21/2021 Right Upper lobe of lung SBRT * Linked Problems Non-small cell cancer of rig ht lung Treatment Courses* Course C2 10/08/2021 - 10/21/2021 Treatment Period Fraction Dose Fractions Total Dose Plans Planned RUL SBRT 10/08/2021 - 10/21/2021 1,000 cGy 5 / 5 5 ,000 cGy Reference Points Delivered RUL 10/08/2021 - 10/21/2021 5,000 cGy Radiation Treatments (No Episode) * Course C1 04/08/2021 - 05/01/2021 Treatment Period Energy Fraction Dose Fractions Total Dose Plans Planned A1A2/Lt Neck 04/08/2021 - 05/01/2021 180 cGy 18 / 18 3,240 cGy Reference Points Delivered LtNeck/Thyroid 04/08/2021 - 05/01/2021 3,240 cGy PTV 2 04/08/2021 - 05/01/2021 3,600 cGy Lifetime Dose Tracking * Chemical Lifetime Dose Automatic Entry Manual Entr y Fluoro Time 1.445 minutes 1.445 minutes 0 minutes Air Kerma 16.22 mGy 16.22 mGy 0 mGy
--- OUTSIDE RECORDS SUMMARY | 2025-04-08 12:19 | XMS_ITS | Encounter Summary ---
Author Organization Healthcare Address [address] [id number] Care Team Providers Care Luster Repairer Name Role Phone Pan Berrios MD Primary Care Provider [phone] Agustin Michaud MD Unavailable [phone] Ronn Burrell MD Unavailable [phone] Encounter Details Date Type Department Care Team (Latest Contact Info) Description 04/01/2025 Travel Social History Tobacco Use Types Packs/Day [...] things Not at all 04/01/2025 10:50 AM EDT Autumn Pittman Feeling down, depressed, or hopeless Not at all 04/01/2025 10:50 AM EDT Autumn Pittman A Patient Health Questionnaire -2 Score 0 [...] all 04/01/2025 10:50 AM Autumn Hylton A Moving or speaking so slowly that other people could have noticed? Or the opposite - being so fidgety or restless that you have been moving around a lot more than usual. Not at all 04/01/2025 10:50 AM Autumn Hylton A Thoughts that you would be better off or hurting yourself in some way Not at all 04/01/2025 10:50 AM Autumn Hylton A Patient Health Questionnaire -9 Score 0 04/01/2025 10:50 AM Autumn Hylton A * Calculated C-SSRS Risk Score (Lifetime/Recent) Answer Date of Assessment Author No Risk Indicated 04/01/2025 10:50 AM Autumn Hylton A * How difficult have these problems made it for you to do your work, take care of things at home, or get along with other people? Answer Date of Assessment Author Not difficult at all 04/01/2025 10:50 AM Autumn Banerjee A * Question Answer Date of Assessment Author 1. Wish to be (Past 1 Month) No 025 10:50 AM Autumn Hylton 2. Non-Specific Active Suici anu Thoughts (Past 1 Month) No 04/01/2025 10:50 AM Keith Hylton 6. Suicidal Behavior (Lifetime) No 10:50 AM Autumn Hylton documented as of this encounter Plan of Treatment Upcoming Encounters Date Type Department Care Team (Late st Contact Info) Description 09/23/2025 11:00 AM EDT Appointment [facility] [address] [facility] [id number] [place] [address] Agustin Michaud MD [address] [phone] documented as of this encounter Visit Diagnoses Not on filedocumented in this encounter Additional Health Concerns Assessment Noted Time PHQ-9 Depression Total Score: 0 04/01/20 25 10:50 AM EDT A fall risk assessment has been complete d for the patient 04/01/2025 10:50 AM EDT documented as of this encounter Care Teams Luster Repairer Relationship Specialty Start Date End Date Pan Berrios MD [address] [place] [address] PCP - General 03/20/21 Agustin Michaud MD [address] [phone] Radiation Oncologist Radiation Therapy 03/20/21 Ronn Burrell MD [address] [place] [address] Consulting Physician Pulmonary Disease 06/08/21 documented as of this encounter
--- OUTSIDE RECORDS SUMMARY | 2025-04-08 12:19 | XMS_ITS | Patient Health Record ---
Author Organization [facility] Address [address] [place] [id number] Care Team Providers Care Keno Attendant Name Role Phone Agustina Tomasa Mayco Primary Care Provider Allergies No Known Allergies Results Component Value Reference Range Notes P-Comprehensive Metabolic Pa srinivas (CMP) Reviewed date:07/30/2024 10:39:37 AM Interpretation:K+ 5.4, gluc 101 Performing Lab: Notes/Report: Test performed by [facility] [address] [facility] , [address], [place] [address] Sanford Jaimes MD, Freezing Room Worker CLIA: [id number] Sodium 144 135-145 mmol/L Potassium 5.4 3.5-5.3 [...] 135 Performing Lab: Notes/Report: Test performed by [facility], [address] , [address], [place] [address] Sanford Jaimes MD, Freezing Room Worker CLIA: [id number] Cholesterol 236 <200 mg/dL Triglycerides 68 <150 [...] Interpretation:Normal Performing Lab: Notes/Report: Test performed by [facility] [address] [place] [address] , [address], [place] [id number] Sanford Jaimes MD, Freezing Room Worker CLIA: [id number] TSH 1.45 0.43-5.25 mU/L CBC Venipuncture (in house) Reviewed date:02/03/2025 04:18:39 [...] date:02/03/2025 04:18:39 PM Interpretation:Normal Performing Lab: Notes/Report: Test performed by [facility] [address] [place], [place] [address] [address], [place] [address] Sanford Jaimes MD, Freezing Room Worker CLIA: [id number] Sodium 143 135-145 mmol/L Potassium 4.2 3.5-5.3 [...] 138 Performing Lab: Notes/Report: Test performed by [facility], [address] , [place] [address] Sanford Jaimes MD, Freezing Room Worker CLIA: [id number] Cholesterol 230 <200 mg/dL Triglycerides 110 <150 [...] Interpretation:0.21 Performing Lab: Notes/Report: Test performed by [facility] [address] [place] [address] , [address], [place] [address] Sanford Jaimes MD, Freezing Room Worker CLIA: [id number] TSH 0.21 0.43-5.25 mU/L Reason For Referral No Information Medications Medication SIG (Take, Route, Frequency, Duration) Notes Start Date End Date Status Biotin 1 MG as directed Orally Active Clobetasol Propionate 0.05 % 1 pamela appli ed topically 2 times a day 06/13/2018 Active Euthyrox 100 MCG 1 tab(s) orally once a day Active Levothyroxine Sodium 100 MCG Take 1 tabl et by mouth once daily; Duration: 90 Active Ibuprofen PM 200-38 MG 1 cap(s) orally o nce daily Active Aspirin Adult Low Dose 81 MG 1 tab(s) or ally once a day Active [place]-3 1000 MG 1/2 tab orally once daily Active Calcium 600 + Minerals 600-200 MG-UNIT 1 tab(s) orally 3 times a day Active Multivitamin - 1 tab(s) orally once a day Active Immunizations Vaccine Route Administration Date Status Comme nts xFluzone High Dose-private (65yr&older) Unknown 04/24/2024 Administered Shingrix Unknown 09/22/2021 Administered Shingrix Unknown 12/15/2021 Administered PNEUMOVAX 23 VACCINE IM Intramuscular 01/31/2025 Administered Fluzone High Dose (65yr and older) IM Intramuscular 06/14/2017 Administered Fluzone High Dose (65yr and older) IM Intramuscular 06/01/2018 Administered Fluzone High Dose (65yr and older) IM Intramuscular 04/17/2019 Administered Fluzone High Dose (65yr and older) IM Intramuscular 04/14/2020 Administered Fluzone High Dose (65yr and older) IM Intramuscular 05/07/2021 Administered Given by: Lily Tillman Fluzone High Dose (65yr and older) Unknown 04/16/2022 Administered Fluzone High Dose (65yr and older) IM Intramuscular 05/03/2023 Administered COVID 19 Moderna Unknown 07/30/2020 Administered COVID 19 Moderna Unknown 08/27/2020 Administered COVID 19 Moderna Unknown 03/18/2021 Administered Social History Tobacco Use: Social History Observation Description Date Details (start date - stop date) Never Smoker NA - NA CURRENT TOBACCO USE: Question Answer Notes Are you a: never smoker Problems Problem Type SNOMED Code ICD Code Onset Dates Problem Status W/U Status Risk Notes Problem Acquired hypothyroidism (029488046) Acquired hypothyroidism (E03.9) Active confirmed Problem Localized, primary osteoarthritis of the pelvic region and thigh (334873879) Primary osteoarthritis of right hip (M16.11) Active confirmed Problem History of malignant neoplasm of breast (546115755) Hx of breast cancer (Z85.3) Active confirmed Problem Dyslipidemia (666510205) Dyslipidemia (E78.5) Active confirmed Problem Chronic lymphoid leukemia, disease (67059586) CLL (chronic lymphocytic leukemia) (C91.10) Active confirmed Problem 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) (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) Active confirmed Problem Osteopenia (988691457) Osteopenia of spine (M85.88) Active confirmed Problem Malignant neoplasm of right upper lobe of lung (725390109) Malignant neoplasm of right upper lobe of lung (C34.11) Active confirmed Vital Signs Heart Rate 56 /min 01/31/2025 Blood pressure diastolic 60 mm Hg 01/31/2025 Height 61 in 01/31/2025 Blood pressure systolic 116 mm Hg 01/31/2025 Weight 106.8 lbs 01/31/2025 BMI 20.18 kg/m2 01/31/2025 Encounters Encounter [facility] Date [facility] [address] [facility] [address] [place], [place] [id number] 07/26/2024 R Mayco Berrios Acquired hypothyroid ism E03.9 ; Osteopenia of spine M85.88 ; Hx of breast cancer Z85.3 ; CLL (chronic lymphocytic leukemia) C91.10 ; Primary osteoarthritis of right hip M16.11 ; Large B-cell lymphoma C85.10 ; Malignant neoplasm of right upper lobe of lung C34.11 ; Dyshidrotic eczema L30.1 and Dyslipidemia E78.5 [facility] [address] [facility] [address], [place] [id number] 01/31/2025 R Mayco Berrios Adult general medica l examination Z00.00 ; Acquired hypothyroidism E03.9 ; Dyslipidemia E78.5 ; Osteopenia of spine M85.88 ; Hx of breast cancer Z85.3 ; CLL (chronic lymphocytic leukemia) C91.10 ; Primary osteoarthritis of right hip M16.11 ; Large B-cell lymphoma C85.10 ; Malignant neoplasm of right upper lobe of lung C34.11 ; Dyshidrotic eczema L30.1 and BMI 20.0-20.9, adult Z68.20 [facility] [address] [facility] [place], [place] [id number] 07/30/2024 R Mayco Berrios [facility] [address] [facility] [place], [place] [id number] 02/03/2025 R Mayco Berrios [facility] [address] [facility] [place], [place] [id number] 03/25/2025 Tomasa Berrios [facility] [address] [facility] [address] [place] [id number] 03/10/2025 Tomasa Berrios [facility] [address] [facility] [address] [place] [id number] 03/12/2025 Tomasa Berrios Assessments Encounter Date Diagnosis (ICD Code) Assessment Notes Treatment Notes Treatment Clinical Notes Section Notes 07/26/2024 Acquired hypothyroidism (ICD-10 - E03.9) 07/26/2024 Osteopenia of spine (ICD-10 - M85.88) 01/31/2025 Acquired hypothyroidism (ICD-10 - E03.9) 01/31/2025 Adult general medical examination (ICD-10 - Z00.00) Patient instructed to return to office Annually for Annual Wellness Visits to include annual screenings of Pain assessment, Functional Ability assessment, Cognitive Ability assessment, Fall Risk assessment, Depression screening and Bladder control screening. 01/31/2025 Dyslipidemia (ICD-10 - E78.5) 07/26/2024 Hx of breast cancer (ICD-10 - Z85.3) 07/26/2024 CLL (chronic lymphocytic leukemia) (ICD-10 - C91.10) Continue follow-up with oncology 01/31/2025 Osteopenia of spine (ICD-10 - M85.88) 01/31/2025 Hx of breast cancer (ICD-10 - Z85.3) 07/26/2024 Primary osteoarthritis of right hip (ICD-10 - M16.11) 07/26/2024 Large B-cell lymphoma (ICD-10 - C85.10) 01/31/2025 CLL (chronic lymphocytic leukemia) (ICD-10 - C91.10) Continue follow-up with oncology 07/26/2024 Malignant neoplasm of right upper lobe of lung (ICD-10 - C34.11) 01/31/2025 Primary osteoarthritis of right hip (ICD-10 - M16.11) 07/26/2024 Dyshidrotic eczema (ICD-10 - L30.1) 01/31/2025 Large B-cell lymphoma (ICD-10 - C85.10) 01/31/2025 Malignant neoplasm of right upper lobe of lung (ICD-10 - C34.11) 07/26/2024 Dyslipidemia (ICD-10 - E78.5) 01/31/2025 Dyshidrotic eczema (ICD-10 - L30.1) 01/31/2025 BMI 20.0-20.9, adult (ICD-10 - Z68.20) Plan Of Treatment Next Appt Details Provider Name:Tomasa Haro, 08/06/2025 09:30:00 AM, [address], [address], [place], [place], [id number], Insurance Providers Payer Name Payer Address Payer Phone Subscriber Number Group Number Insured Name Patient Relationship to Insured Coverage Start Date Coverage End Date MEDICARE PART B [address] [address] [place] [id number] PAOLA ALBA Self - patient is the insured [facility] [employer] [address] [place] [address] [phone] [id number] PAOLA ALBA Self - patient is the insured Medical (General) History Medical History History ICD Code Hypothyroid Breast Cancer - diagnosed 01/2017 Uterine Fibroids CLL Dx in July 2016 - follows with on cology Osteopenia COLOGUARD - Negative - 01/2018 BMD - normal - 09/2018 Mammogram - normal - 09/2018 Has had Prevnar and Pneumovax in past Mammograms ordered by oncologist Large B cell lymphoma- diagnosed 10/2020 Primary lung cancer - diagnosed 08/2021 - S/P radiation therapy/ [place] Bone density testing per oncology Surgical History Surgery Date(Month/Year) Hysterectomy Jul 2001 Partial Mastectomy/left breast January 2017 cataract surgery, both eyes Colonoscopy ~2011 Sinus Surgery 10/12/2023
== END 2025-04-07 23:59 ==
LOC: LAB.DROPOF 04-08 12:16
PROVIDERS: PCP Student in an Organized Health Care Education/Training Program; Visit Provider Student in an Organized Health Care Education/Training Program
DX: J06.9 Acute upper respiratory infection, unspecified (principal)
CPT/HCPCS: 87636